=== PATIENT | male | born 1975 | race Caucasian/White ===

== ENCOUNTER → 2017-01-11 | Outpatient (CLI) | payer OTHER ==
--- NOTE | 2017-01-11 12:53 | MR ---
EXAMINATION TYPE: MR lumbar spine wo con DATE OF EXAM: 01/11/2017 COMPARISON: NONE HISTORY: Lumbago CONTRAST: 0 mL intravenous MultiHance. TECHNIQUE: Multiplanar, multisequence images of the lumbar spine were acquired. FINDINGS: L5-S1: No significant disc bulge or disc herniation. No spinal canal stenosis. No foraminal stenosi s. Mild facet hypertrophy is present.. L4-L5: No significant disc bulge or disc herniation. No spinal canal stenosis. No foraminal stenosi s. Mild disc desiccation is present. No loss of disc height is evident.. L3-L4: No significant disc bulge or disc herniation. No spinal canal stenosis. No foraminal stenosi s. . L2-L3: No significant disc bulge or disc herniation. No spinal canal stenosis. No foraminal stenosi s. . L1-L2: No significant disc bulge or disc herniation. No spinal canal stenosis. No foraminal stenosi s. . T12-L1: No significant disc bulge or disc herniation. No spinal canal stenosis. No foraminal stenos is. IMPRESSION: 1. Mild disc desiccation L4-5. 2. Mild facet degenerative change L5-S1
== END | disposition home or self-care (01) ==
LOC: RADMRIMAIN 10:04
PROVIDERS: ATTEND Nurse Practitioner Acute Care
DX: M47.817 Spondylosis without myelopathy or radiculopathy, lumbosacral region (principal)
CPT/HCPCS: 72148

== ENCOUNTER 2017-08-09 15:22 | Emergency (ER) | payer OTHER ==
[2017-08-09] MEDS ORDERED: SODIUM CHLORIDE 0.9% 1,000 ML IV STA (15:45)
[2017-08-09] MEDS ORDERED: KETOROLAC 30 MG/ML 1 ML VIAL IVP STA (15:45)
[2017-08-09] MEDS ORDERED: IPRATROPIUM-ALBUTEROL 3 ML NEB INHALATION STA (15:48)
--- NOTE | 2017-08-09 15:48 | ED ---
General Adult HPI - General Chief complaint: Chest Pain Stated complaint: Trunk pain Time Seen by Provider: 08/09/17 15:38 Source: patient, RN notes reviewed Mode of arrival: ambulatory Limitations: no limitations - History of Present Illness Initial comments: Patient is a pleasant 42-year-old male presenting to the emergency Department with complaints of trunk pain. Symptoms have been present for a couple of days. Patient has discomfort all over his trunk anterior and posterior, more in the upper trunk. As comfort does increase with position changes as well as deep breaths. Patient states he may be short of breath however states this because it hurts when he takes a deep breath. No fevers. Rare cough. No leg pain or leg swelling. No history of similar symptoms previously. - Related Data Home Medications Medication Instructions Recorded Confirmed ALPRAZolam [Xanax] 1 mg PO QID PRN 07/03/16 08/09/17 DULoxetine HCL [Cymbalta] 60 mg PO BID 07/18/17 08/09/17 Gabapentin [Neurontin] 600 mg PO TID 07/18/17 08/09/17 Acetaminophen Tab [Tylenol Tab] 325 - 650 mg PO Q6H PRN 08/09/17 08/09/17 Albuterol Inhaler [Ventolin Hfa 2 puff INHALATION Q6HR PRN 08/09/17 08/09/17 Inhaler] Methadone HCl [Methadone Intensol] 105 mg PO DAILY 08/09/17 08/09/17 Omeprazole [PriLOSEC] 20 mg PO DAILY 08/09/17 08/09/17 Allergies Allergy/AdvReac Type Severity Reaction Status Date / Time No Known Allergies Allergy Verified 08/09/17 16:51 Review of Systems ROS Statement: Those systems with pertinent positive or pertinent negative responses have been documented in the HPI. ROS Other: All systems not noted in ROS Statement are negative. 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 Past Anesthesia/Blood Transfusion Reactions: No Reported Reaction Past Psychological History: Anxiety, Depression Smoking Status: Current every day smoker Past Alcohol Use History: None Reported Past Drug Use History: None Reported - Past Family History Mother Family Medical History: Cancer Additional Family Medical History / Comment(s): Rectal ca Father Family Medical History: Cancer Additional Family Medical History / Comment(s): Lung, throat and thyroid General Exam Limitations: no limitations General appearance: alert, in no apparent distress Head exam: Present: atraumatic Eye exam: Present: normal appearance, PERRL ENT exam: Present: normal oropharynx Neck exam: Present: normal inspection Respiratory exam: Present: wheezes (Mild expiratory wheeze), chest wall tenderness Cardiovascular Exam: Present: regular rate, normal rhythm Expanded Peripheral pulses: 2+: Radial (R), Radial (L), Dorsalis Pedis (R), Dorsalis Pedis (L) GI/Abdominal exam: Present: soft. Absent: tenderness Extremities exam: Present: normal inspection. Absent: pedal edema, calf tenderness Back exam: Present: normal inspection. Absent: tenderness Neurological exam: Present: alert Psychiatric exam: Present: normal affect, normal mood Skin exam: Present: normal color Course Vital Signs 08/09/17 08/09/17 08/09/17 15:26 16:10 16:20 Temperature 97.3 F L Pulse Rate 86 70 66 Respiratory 18 Rate Blood Pressure 114/81 O2 Sat by Pulse 98 Oximetry EKG Findings - EKG Comments: EKG Findings:: Normal sinus rhythm 60. MO 132. QRS 92. QT 404. QTC 404. Normal axis. Normal QRS. No acute ST change. Medical Decision Making - Medical Decision Making Patient reevaluated and resting comfortably in bed. Patient did not feel he needed pain medication. Patient updated on results and need for follow-up, including need for repeat testing of renal function. - Lab Data Result diagrams: 08/09/17 16:00 08/09/17 16:00 Lab Results 08/09/17 08/09/17 08/09/17 Range/Units 16:00 16:00 16:00 WBC 9.4 (3.8-10.6) k/uL RBC 5.24 (4.30-5.90) m/uL Hgb 15.9 (13.0-17.5) gm/dL Hct 47.8 (39.0-53.0) % MCV 91.1 (80.0-100.0) fL MCH 30.4 (25.0-35.0) pg MCHC 33.4 (31.0-37.0) g/dL RDW 13.0 (11.5-15.5) % Plt Count 200 (150-450) k/uL Neutrophils % 53 % Lymphocytes % 36 % Monocytes % 4 % Eosinophils % 5 % Basophils % 1 % Neutrophils # 5.0 (1.3-7.7) k/uL Lymphocytes # 3.4 (1.0-4.8) k/uL Monocytes # 0.4 (0-1.0) k/uL Eosinophils # 0.4 (0-0.7) k/uL Basophils # 0.1 (0-0.2) k/uL PT (9.0-12.0) sec INR (<1.2) APTT (22.0-30.0) sec D-Dimer (<0.60) mg/L FEU Sodium 140 (137-145) mmol/L Potassium 5.2 H (3.5-5.1) mmol/L Chloride 99 (98-107) mmol/L Carbon Dioxide 31 H (22-30) mmol/L Anion Gap 10 mmol/L BUN 17 (9-20) mg/dL Creatinine 1.40 H (0.66-1.25) mg/dL Est GFR (MDRD) Af Amer >60 (>60 ml/min/1.73 sqM) Est GFR (MDRD) Non-Af 56 (>60 ml/min/1.73 sqM) Glucose 106 H (74-99) mg/dL Calcium 9.6 (8.4-10.2) mg/dL Magnesium 2.0 (1.6-2.3) mg/dL Total Bilirubin 0.7 (0.2-1.3) mg/dL AST 26 (17-59) U/L ALT 39 (21-72) U/L Alkaline Phosphatase 53 (38-126) U/L Total Creatine Kinase 198 H (55-170) U/L CK-MB (CK-2) <0.2 (0.0-2.4) ng/mL CK-MB (CK-2) Rel Index Troponin I <0.012 (0.000-0.034) ng/mL NT-Pro-B Natriuret Pep pg/mL Total Protein 7.1 (6.3-8.2) g/dL Albumin 4.2 (3.5-5.0) g/dL Amylase 43 (30-110) U/L Lipase 106 (23-300) U/L 08/09/17 08/09/17 Range/Units 16:00 16:00 WBC (3.8-10.6) k/uL RBC (4.30-5.90) m/uL Hgb (13.0-17.5) gm/dL Hct (39.0-53.0) % MCV (80.0-100.0) fL MCH (25.0-35.0) pg MCHC (31.0-37.0) g/dL RDW (11.5-15.5) % Plt Count (150-450) k/uL Neutrophils % % Lymphocytes % % Monocytes % % Eosinophils % % Basophils % % Neutrophils # (1.3-7.7) k/uL Lymphocytes # (1.0-4.8) k/uL Monocytes # (0-1.0) k/uL Eosinophils # (0-0.7) k/uL Basophils # (0-0.2) k/uL PT 10.2 (9.0-12.0) sec INR 1.0 (<1.2) APTT 26.5 (22.0-30.0) sec D-Dimer 0.19 (<0.60) mg/L FEU Sodium (137-145) mmol/L Potassium (3.5-5.1) mmol/L Chloride (98-107) mmol/L Carbon Dioxide (22-30) mmol/L Anion Gap mmol/L BUN (9-20) mg/dL Creatinine (0.66-1.25) mg/dL Est GFR (MDRD) Af Amer (>60 ml/min/1.73 sqM) Est GFR (MDRD) Non-Af (>60 ml/min/1.73 sqM) Glucose (74-99) mg/dL Calcium (8.4-10.2) mg/dL Magnesium (1.6-2.3) mg/dL Total Bilirubin (0.2-1.3) mg/dL AST (17-59) U/L ALT (21-72) U/L Alkaline Phosphatase (38-126) U/L Total Creatine Kinase (55-170) U/L CK-MB (CK-2) (0.0-2.4) ng/mL CK-MB (CK-2) Rel Index Troponin I (0.000-0.034) ng/mL NT-Pro-B Natriuret Pep 33 pg/mL Total Protein (6.3-8.2) g/dL Albumin (3.5-5.0) g/dL Amylase (30-110) U/L Lipase (23-300) U/L - Radiology Data Radiology results: image reviewed (Chest x-ray shows no acute process) Disposition Clinical Impression: Chest pain Disposition: HOME SELF-CARE Condition: Stable Instructions: Chest Pain (ED) Additional Instructions: Please follow-up with your doctor tomorrow. Return for increased pain, difficult to breathing, change or worsening symptoms or other concerns. Referrals: Gisele Garcia MD [Primary Care Provider] - 1-2 days Time of Disposition: 16:57
[2017-08-09 16:10] LABS: Basophils # (A) 0.1 k/uL (0-0.2); Basophils % (A) 1 %; Eosinophils # (A) 0.4 k/uL (0-0.7); Eosinophils % (A) 5 %; HCT 47.8 % (39.0-53.0); HGB 15.9 gm/dL (13.0-17.5); Lymphocytes # (A) 3.4 k/uL (1.0-4.8); Lymphocytes % (A) 36 %; MCH 30.4 pg (25.0-35.0); MCHC 33.4 g/dL (31.0-37.0); MCV 91.1 fL (80.0-100.0); Mean Platelet Volume 7.2; Monocytes # (A) 0.4 k/uL (0-1.0); Monocytes % (A) 4 %; Neutrophils % (A) 53 %; Platelet Count 200 k/uL (150-450); RBC 5.24 m/uL (4.30-5.90); WBC 9.4 k/uL (3.8-10.6)
[2017-08-09 16:21] LABS: ALT 39 U/L (21-72); AST 26 U/L (17-59); Albumin 4.2 g/dL (3.5-5.0); Alkaline Phosphatase 53 U/L (38-126); Amylase 43 U/L (30-110); Anion Gap 10 mmol/L; Blood Urea Nitrogen 17 mg/dL (9-20); Calcium 9.6 mg/dL (8.4-10.2); Carbon Dioxide 31 mmol/L (22-30); Chloride 99 mmol/L (98-107); Glucose 106 mg/dL (74-99); Lipase 106 U/L (23-300); Potassium 5.2 mmol/L (3.5-5.1); Sodium 140 mmol/L (137-145); Total Bilirubin 0.7 mg/dL (0.2-1.3); Total Protein 7.1 g/dL (6.3-8.2)
[2017-08-09 16:23] LABS: D-Dimer 0.19 mg/L FEU (<0.60); Partial Thromboplastin Time 26.5 sec (22.0-30.0); Prothrombin Time 10.2 sec (9.0-12.0)
[2017-08-09 16:28] LABS: Creatine Kinase 198 U/L (55-170)
[2017-08-09 16:42] LABS: Creatine Kinase MB <0.2 ng/mL (0.0-2.4); Troponin I <0.012 ng/mL (0.000-0.034)
--- NOTE | 2017-08-09 16:42 | XR ---
EXAMINATION TYPE: XR chest 2V DATE OF EXAM: 08/09/2017 COMPARISON: 1121 and 16 HISTORY: Chest pain TECHNIQUE: Frontal and lateral views of the chest are obtained. FINDINGS: There is no focal air space opacity. No evidence for pneumothorax. No pleural effusion. The cardiac silhouette size is within normal limits. The osseous structures are grossly intact. IMPRESSION: 1. No acute cardiopulmonary process.
[2017-08-09 17:22] VITALS: BP 117/67; PULSE 73; RESP 17; TEMP 98
== END 2017-08-09 17:26 | disposition home or self-care (01) ==
LOC: EC 15:22
DX: R07.9 Chest pain, unspecified (principal); F32.9 Major depressive disorder, single episode, unspecified; F41.9 Anxiety disorder, unspecified; F17.200 Nicotine dependence, unspecified, uncomplicated; Z79.899 Other long term (current) drug therapy
CPT/HCPCS: 36415; 94640; 93005; 85379; 83880; 80053; 82150; 82550; 82553; 83690; 83735; 84484; 85025; 85610; 85730; 71046; 99285; 96374; 96361; J1885

== ENCOUNTER 2017-08-17 09:45 | Emergency (ER) | payer OTHER ==
[2017-08-17] MEDS ORDERED: IPRATROPIUM-ALBUTEROL 3 ML NEB INHALATION STA (10:21)
[2017-08-17] MEDS ORDERED: methylPREDNISolone SOD SUCCI 125 MG/2 ML VIAL IV STA (10:21)
--- NOTE | 2017-08-17 10:46 | ED ---
General Adult HPI - General Chief complaint: Recheck/Abnormal Lab/Rx Stated complaint: HIGH POTASSIUM, ABNORMAL LAB RESULTS Time Seen by Provider: 08/17/17 10:10 Source: patient, RN notes reviewed, old records reviewed Mode of arrival: ambulatory Limitations: no limitations - History of Present Illness Initial comments: Patient is a 42-year-old male who presents emergency room today with an elevated potassium. He states that he was told by his doctor's office that his potassium was high from portal that he had earlier in the week. Patient states that he was seen here in emergency room for complaints of chest palpitations, right sided lower back pain over the last week. He states he was seen and diagnosed with pleurisy. Does some cough congestion. This pain at a smoker but states he has cut back. Patient states still having similar symptoms. States he had focal time his potassium was high yesterday was advised to see the family doctor unable to see him yesterday was advised coming here to the emergency room. Patient denies any other complaints or symptoms at this time. Patient states she's been having all the symptoms over the past 10 days. He denies anything that today. Patient denies any recent fever, chills, shortness of breath, vomiting, numbness or tingling, dysuria or hematuria, constipation or diarrhea, headaches or visual changes, or any other complaints. - Related Data Home Medications Medication Instructions Recorded Confirmed ALPRAZolam [Xanax] 1 mg PO QID PRN 07/03/16 08/17/17 DULoxetine HCL [Cymbalta] 60 mg PO BID 07/18/17 08/17/17 Gabapentin [Neurontin] 600 mg PO TID 07/18/17 08/17/17 Acetaminophen Tab [Tylenol Tab] 325 - 650 mg PO Q6H PRN 08/09/17 08/17/17 Albuterol Inhaler [Ventolin Hfa 2 puff INHALATION Q6HR PRN 08/09/17 08/17/17 Inhaler] Methadone HCl [Methadone Intensol] 105 mg PO DAILY 08/09/17 08/17/17 Omeprazole [PriLOSEC] 20 mg PO DAILY 08/09/17 08/17/17 Previous Rx's Medication Instructions Recorded Albuterol Nebulized [Ventolin 2.5 mg INHALATION Q4H PRN 10 Days 08/17/17 Nebulized] nebu methylPREDNISolone Dose Pack 4 mg PO DIRECTED #21 package 08/17/17 [Medrol Dose Pack] Allergies Allergy/AdvReac Type Severity Reaction Status Date / Time No Known Allergies Allergy Verified 08/17/17 10:25 Review of Systems ROS Statement: Those systems with pertinent positive or pertinent negative responses have been documented in the HPI. ROS Other: All systems not noted in ROS Statement are negative. 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 Past Anesthesia/Blood Transfusion Reactions: No Reported Reaction Past Psychological History: Anxiety, Depression Smoking Status: Current every day smoker Past Alcohol Use History: None Reported Past Drug Use History: None Reported - Past Family History Mother Family Medical History: Cancer Additional Family Medical History / Comment(s): Rectal ca Father Family Medical History: Cancer Additional Family Medical History / Comment(s): Lung, throat and thyroid General Exam - General Exam Comments Initial Comments: General: The patient is awake and alert, in no distress, and does not appear acutely ill. Eye: Pupils are equal, round and reactive to light, extra-ocular movements are intact. No nystagmus. There is normal conjunctiva bilaterally. No signs of icterus. Ears, nose, mouth and throat: There are moist mucous membranes and no oral lesions. Neck: The neck is supple, there is no tenderness or JVD. Cardiovascular: There is a regular rate and rhythm. No murmur, rub or gallop is appreciated. Tender to palpation over the anterior chest wall. Respiratory: Lungs are clear to auscultation, respirations are non-labored, breath sounds are equal. No wheezes, stridor, rales, or rhonchi. Gastrointestinal: Soft, non-distended, non-tender abdomen without masses or organomegaly noted. There is no rebound or guarding present. No CVA tenderness. Bowel sounds are unremarkable. Musculoskeletal: Normal ROM, no tenderness. Strength 5/5. Sensation intact. Pulses equal bilaterally 2+. Neurological: A&O x 3. CN II-XII intact, There are no obvious motor or sensory deficits. Coordination appears grossly intact. Speech is normal. Skin: Skin is warm and dry and no rashes or lesions are noted. Psychiatric: Cooperative, appropriate mood & affect, normal judgment. Limitations: no limitations Course Vital Signs 08/17/17 08/17/17 08/17/17 10:00 10:33 10:44 Temperature 98.5 F Pulse Rate 87 83 83 Respiratory 18 Rate Blood Pressure 142/78 O2 Sat by Pulse 97 Oximetry 08/17/17 10:45 Temperature Pulse Rate 73 Respiratory 16 Rate Blood Pressure 106/70 O2 Sat by Pulse 95 Oximetry Medical Decision Making - Medical Decision Making Patient's previous labs were also reviewed. Did have a D-dimer test that was negative on previous visit. Patient's labs today are unremarkable. Potassium is 4.9 and normal range. Results were discussed with patient. EKG shows no changes. He states he's had same symptoms that he's been expressing over the last week. Patient's pain is reproduced certain movements also when he takes deep breath. He says she was diagnosed with pleurisy. Advised continue with anti-inflammatories for pain at this time to follow-up family doctor. Return for any other concerns. - Lab Data Result diagrams: 08/17/17 10:40 08/17/17 10:40 Lab Results 08/17/17 08/17/17 08/17/17 Range/Units 10:40 10:40 10:40 WBC 7.2 (3.8-10.6) k/uL RBC 5.41 (4.30-5.90) m/uL Hgb 16.4 (13.0-17.5) gm/dL Hct 50.1 (39.0-53.0) % MCV 92.7 (80.0-100.0) fL MCH 30.4 (25.0-35.0) pg MCHC 32.7 (31.0-37.0) g/dL RDW 14.6 (11.5-15.5) % Plt Count 238 (150-450) k/uL Neutrophils % 50 % Lymphocytes % 35 % Monocytes % 6 % Eosinophils % 6 % Basophils % 1 % Neutrophils # 3.6 (1.3-7.7) k/uL Lymphocytes # 2.5 (1.0-4.8) k/uL Monocytes # 0.4 (0-1.0) k/uL Eosinophils # 0.4 (0-0.7) k/uL Basophils # 0.1 (0-0.2) k/uL PT (9.0-12.0) sec INR (<1.2) APTT (22.0-30.0) sec Sodium 139 (137-145) mmol/L Potassium 4.9 (3.5-5.1) mmol/L Chloride 101 (98-107) mmol/L Carbon Dioxide 29 (22-30) mmol/L Anion Gap 9 mmol/L BUN 15 (9-20) mg/dL Creatinine 0.99 (0.66-1.25) mg/dL Est GFR (MDRD) Af Amer >60 (>60 ml/min/1.73 sqM) Est GFR (MDRD) Non-Af >60 (>60 ml/min/1.73 sqM) Glucose 96 (74-99) mg/dL Calcium 9.9 (8.4-10.2) mg/dL Total Bilirubin 0.5 (0.2-1.3) mg/dL AST 19 (17-59) U/L ALT 28 (21-72) U/L Alkaline Phosphatase 63 (38-126) U/L Total Creatine Kinase 89 (55-170) U/L CK-MB (CK-2) 0.3 (0.0-2.4) ng/mL CK-MB (CK-2) Rel Index 0.3 Troponin I <0.012 (0.000-0.034) ng/mL Total Protein 7.1 (6.3-8.2) g/dL Albumin 4.4 (3.5-5.0) g/dL 08/17/17 Range/Units 10:40 WBC (3.8-10.6) k/uL RBC (4.30-5.90) m/uL Hgb (13.0-17.5) gm/dL Hct (39.0-53.0) % MCV (80.0-100.0) fL MCH (25.0-35.0) pg MCHC (31.0-37.0) g/dL RDW (11.5-15.5) % Plt Count (150-450) k/uL Neutrophils % % Lymphocytes % % Monocytes % % Eosinophils % % Basophils % % Neutrophils # (1.3-7.7) k/uL Lymphocytes # (1.0-4.8) k/uL Monocytes # (0-1.0) k/uL Eosinophils # (0-0.7) k/uL Basophils # (0-0.2) k/uL PT 10.1 (9.0-12.0) sec INR 1.0 (<1.2) APTT 27.1 (22.0-30.0) sec Sodium (137-145) mmol/L Potassium (3.5-5.1) mmol/L Chloride (98-107) mmol/L Carbon Dioxide (22-30) mmol/L Anion Gap mmol/L BUN (9-20) mg/dL Creatinine (0.66-1.25) mg/dL Est GFR (MDRD) Af Amer (>60 ml/min/1.73 sqM) Est GFR (MDRD) Non-Af (>60 ml/min/1.73 sqM) Glucose (74-99) mg/dL Calcium (8.4-10.2) mg/dL Total Bilirubin (0.2-1.3) mg/dL AST (17-59) U/L ALT (21-72) U/L Alkaline Phosphatase (38-126) U/L Total Creatine Kinase (55-170) U/L CK-MB (CK-2) (0.0-2.4) ng/mL CK-MB (CK-2) Rel Index Troponin I (0.000-0.034) ng/mL Total Protein (6.3-8.2) g/dL Albumin (3.5-5.0) g/dL Disposition Clinical Impression: Bronchitis Disposition: HOME SELF-CARE Condition: Good Instructions: Acute Bronchitis (ED) Additional Instructions: Please use medication as discussed. Please follow-up with family doctor in the next 2 days. Please return to emergency room if the symptoms increase or worsen or for any other concerns. Prescriptions: Albuterol Nebulized [Ventolin Nebulized] 2.5 mg INHALATION Q4H PRN 10 Days nebu PRN Reason: Cough methylPREDNISolone Dose Pack [Medrol Dose Pack] 4 mg PO DIRECTED #21 package Referrals: Gisele Garcia MD [Primary Care Provider] - 1-2 days Time of Disposition: 11:52
[2017-08-17 10:59] LABS: Basophils # (A) 0.1 k/uL (0-0.2); Basophils % (A) 1 %; Eosinophils # (A) 0.4 k/uL (0-0.7); Eosinophils % (A) 6 %; HCT 50.1 % (39.0-53.0); HGB 16.4 gm/dL (13.0-17.5); Lymphocytes # (A) 2.5 k/uL (1.0-4.8); Lymphocytes % (A) 35 %; MCH 30.4 pg (25.0-35.0); MCHC 32.7 g/dL (31.0-37.0); MCV 92.7 fL (80.0-100.0); Mean Platelet Volume 8.3; Monocytes # (A) 0.4 k/uL (0-1.0); Monocytes % (A) 6 %; Neutrophils # (A) 3.6 k/uL (1.3-7.7); Neutrophils % (A) 50 %; Platelet Count 238 k/uL (150-450); RBC 5.41 m/uL (4.30-5.90); RDW 14.6 % (11.5-15.5); WBC 7.2 k/uL (3.8-10.6)
[2017-08-17 11:08] LABS: ALT 28 U/L (21-72); AST 19 U/L (17-59); Albumin 4.4 g/dL (3.5-5.0); Alkaline Phosphatase 63 U/L (38-126); Anion Gap 9 mmol/L; Blood Urea Nitrogen 15 mg/dL (9-20); Calcium 9.9 mg/dL (8.4-10.2); Carbon Dioxide 29 mmol/L (22-30); Chloride 101 mmol/L (98-107); Glucose 96 mg/dL (74-99); Potassium 4.9 mmol/L (3.5-5.1); Sodium 139 mmol/L (137-145); Total Bilirubin 0.5 mg/dL (0.2-1.3); Total Protein 7.1 g/dL (6.3-8.2)
--- NOTE | 2017-08-17 11:11 | XR ---
EXAMINATION TYPE: XR chest 2V DATE OF EXAM: 08/17/2017 COMPARISON: Prior chest x-ray 08/09/2017 HISTORY: Cough and chest pain TECHNIQUE: Frontal and lateral views of the chest are obtained. FINDINGS: There is no focal air space opacity, pleural effusion, or pneumothorax seen. The cardiac silhouette size is within normal limits. Patient is rotated and there are overlying cardiac leads. Chely ng volumes are low. There is bronchial wall thickening. The osseous structures are intact. IMPRESSION: Correlate for bronchitis, reactive airways disease, follow-up as indicated
[2017-08-17 11:15] LABS: Partial Thromboplastin Time 27.1 sec (22.0-30.0); Prothrombin Time 10.1 sec (9.0-12.0)
[2017-08-17 11:22] LABS: Creatine Kinase 89 U/L (55-170)
[2017-08-17 11:34] LABS: Creatine Kinase MB 0.3 ng/mL (0.0-2.4); Troponin I <0.012 ng/mL (0.000-0.034)
[2017-08-17 12:33] VITALS: BP 102/53; PULSE 76; RESP 18; TEMP 97.7
== END 2017-08-17 12:32 | disposition home or self-care (01) ==
LOC: EC 09:45
DX: J40 Bronchitis, not specified as acute or chronic (principal); E87.5 Hyperkalemia; F17.200 Nicotine dependence, unspecified, uncomplicated; F41.9 Anxiety disorder, unspecified; F32.9 Major depressive disorder, single episode, unspecified; Z79.891 Long term (current) use of opiate analgesic; Z79.899 Other long term (current) drug therapy
CPT/HCPCS: 36415; 94640; 93005; 80053; 82550; 82553; 84484; 85025; 85610; 85730; 71046; 99285; 96374; J2930

== ENCOUNTER 2024-05-07 13:40 | Inpatient (IN) | payer BC, OTHER ==
--- NOTE | 2024-05-07 13:52 | P.CRDCN ---
History of Present Illness Consult date: 05/07/24 History of present illness: HISTORY OF PRESENTING ILLNESS 48-year-old male presented to [facility] with substernal chest pain. On admission to the ER his ECG showed mild ST elevations in inferolateral leads for which STEMI was activated. His blood work showed an elevated high- sensitivity troponin of 500. Because of ongoing substernal chest pain nonrevealing with nitroglycerin and subtle ST changes, STEMI was activated by the ER physician at [facility] and was transferred to [facility]. Patient was evaluated in the [facility]. Patient reported having 8/10 substernal chest pressure. He is hemodynamically stable. Patient denies any smoking, recreational drug use marijuana use or alcohol use He denies any family Struve premature coronary artery disease He denies any history of stroke [place] or any diabetes in the past. REVIEW OF SYSTEMS 14 point review of system is negative except what is mentioned above in HPI. PHYSICAL EXAMINATION Vital signs reviewed. Head: Normocephalic. Eyes: Sclerae nonicteric. Neck: Brisk carotid upstroke, no jugular venous distention. Lungs: Clear to auscultation. Heart: Regular rate and rhythm, S1-S2, no S3, no murmur or rub. Abdomen: Soft nontender, positive bowel sounds. Extremities: No edema, intact distal pulses. Neuro: Alert, oritented, no focal deficits. Detailed neuro exam was not performed. ASSESSMENT Inferior STEMI Substernal chest pressure PLAN Verbal consent was obtained from the patient to proceed with cardiac exacerbation. He understands the risk of stroke [place] vascular injury. He would like to proceed. Further recommendations to follow cardiac cath results Reevaluate social and family history once patient is more stable. Giuliano Hinojosa MD, FACC, RPVI Thank you for allowing [facility] to participate in this patient's care. Feel free to reach out in case of any followup questions. 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 Past Anesthesia/Blood Transfusion Reactions: No Reported Reaction Past Psychological History: Anxiety, Depression Past Alcohol Use History: None Reported Past Drug Use History: None Reported - Past Family History Mother Family Medical History: Cancer Additional Family Medical History / Comment(s): Rectal ca Father Family Medical History: Cancer Additional Family Medical History / Comment(s): Lung, throat and thyroid Medications and Allergies Home Medications Medication Instructions Recorded Confirmed Type ALPRAZolam [Xanax] 1 mg PO QID PRN 07/03/16 08/17/17 History DULoxetine HCL [Cymbalta] 60 mg PO BID 07/18/17 08/17/17 History Gabapentin [Neurontin] 600 mg PO TID 07/18/17 08/17/17 History Acetaminophen Tab [Tylenol Tab] 325 - 650 mg PO Q6H PRN 08/09/17 08/17/17 History Albuterol Inhaler [Ventolin Hfa 2 puff INHALATION Q6HR PRN 08/09/17 08/17/17 History Inhaler] Methadone HCl [Methadone Intensol] 105 mg PO DAILY 08/09/17 08/17/17 History Omeprazole [PriLOSEC] 20 mg PO DAILY 08/09/17 08/17/17 History Albuterol Nebulized [Ventolin 2.5 mg INHALATION Q4H PRN 10 Days 08/17/17 Rx Nebulized] nebu methylPREDNISolone Dose Pack 4 mg PO DIRECTED #21 package 08/17/17 Rx [Medrol Dose Pack] Allergies Allergy/AdvReac Type Severity Reaction Status Date / Time No Known Allergies Allergy Verified 08/17/17 10:25
[2024-05-07] MEDS: LIDOCAINE 1% INJ 10MG/ML (20 ML MDV) SQ ONE (13:58)
[2024-05-07] MEDS: IV FLUID CONTINUATION 800 ML IV ONE (13:58)
[2024-05-07] MEDS: MIDAZOLAM 2 MG/2 ML VIAL IVP ONE (13:58)
[2024-05-07] MEDS: fentaNYL (PF) 50 MCG/ML 2 ML AMP IVP ONE (13:58)
[2024-05-07] MEDS: VERAPAMIL SYRINGE (5 MG/10 ML) INTRAARTER ONE (14:00)
[2024-05-07] MEDS: HEPARIN SODIUM 1,000 UN/ML (10ML VL) IV ONE (14:03)
[2024-05-07] MEDS: IOPAMIDOL-370 200ML BTL INJ ONE (14:18)
[2024-05-07] MEDS: HEPARIN SODIUM,PORCINE (1 ML) 2,500 UNIT in SODIUM CHLORIDE 0.9% 250 ML IRRIGATION ONE (14:19)
[2024-05-07] MEDS: HEPARIN SODIUM,PORCINE 10,000 UNIT in SODIUM CHLORIDE 0.9% 1,000 ML IRRIGATION ONE (14:19)
[2024-05-07] MEDS ORDERED: RX INFO: IV CONTRAST WAS GIVEN 1 EACH MISC MISCELLANE PRN (14:33)
--- NOTE | 2024-05-07 14:33 | P.CARDCATH ---
Date of Procedure: 05/07/24 Description of Procedure: DIAGNOSTIC CORONARY ANGIOGRAPHY and LEFT HEART CATH REPORT PROCEDURES PERFORMED: Left heart catheterization Selective coronary angiography Left ventriculogram Moderate conscious sedation 28 mins Right radial access INDICATION: STEMI 48-year-old male with 3 to 4 days of substernal chest pressure presented to [facility] because of acute worsening of substernal chest heaviness sensation this morning. On admission his high-sensitivity troponin was elevated at 500. Along with this he had minor ST changes in inferolateral leads for which the ER physician at [facility] activated the STEMI. Patient was brought to [facility] on emergent basis. CONSENT: I have explained the procedural steps of above-mentioned procedures in layman's terms to the patient. I discussed the risks (including but not limited to stroke, emergent vascular or cardiac surgery or ), benefits and alternative therapies for the above-mentioned procedure. I discussed the risks of sedation/analgesia and blood product administration (if indicated). The patient has indicated understanding and acceptance of these risks. Conscious Sedation: Patient's ECG, heart rate, blood pressure, pulse oximetry were monitored throughout the duration of procedure under my direct supervision. [2] mg Versed and [50] mcg Fentanyl were used for induction of moderate conscious sedation. Total duration of moderate concious sedation 28 minutes. PROCEDURE: After explaining the risks, benefits and alternatives of the above mentioned procedures in detail to the patient, informed consent was obtained. Patient was taken to the catheterization lab, prepped and draped in usual sterile fashion using universal precuations. Ultrasound was used to identify the radial artery. 1% lidocaine was infiltrated over the right radial artery. A 6-Swazi sheath was placed and secured in the right radial artery using modified Seldinger technique. The sheath was flushed and 5 mg verapamil was administered intra-arterially. J tipped wire was advanced under fluoroscopic guidance. Once the wire tip reached aortic root [5000] units of IV heparin was given. Patient was on IV heparin drip prior to the procedure. Over the wire JR4 diagnostic catheter was advanced. The wire in place the nehemias ter was manipulated to cross the aortic valve and entered into LV under fluoroscopy guidance. The wire was removed and the catheter was flushed. LV pressures were obtained and pullback was performed under fluoroscopy. Catheter was manipulated to selectively engage the right coronary ostium. Right coronary angiography was performed in different angiographic projections. The JR4 diagnostic catheter was exchanged for a JL 3.5 diagnostic catheter over the J-wire. The wire was removed, catheter was flushed and manipulated under fluoroscopy to selectively engaged the left coronary ostium. Left coronary angioplasty was performed in different angiographic projections. Catheter was removed over the wire. Radial sheath was flushed. The right radial sheath was removed and a TR band was placed with excellent patent hemostasis was achieved. The patient tolerated the procedure well. Patient was transported back to the post catheterization holding area in stable condition. Angiographic images were reviewed in detail. HEMODYNAMICS: Aortic Pressure: 144/87 mmHg. LV pressure: 145/10 mmHg. LVEDP 24 mmHg. There was no significant gradient across the aortic valve. SELECTIVE CORONARY ARTERIOGRAPHY: LEFT MAIN: The left main is short and large caliber vessel. It bifurcates into the LAD and circumflex. Left main appears angiographically normal. LEFT ANTERIOR DESCENDING CORONARY ARTERY: LAD is a large caliber vessel which wraps around to the apex. Proximal LAD appears angiographically normal. Mid LAD appears angiographically normal. Distal LAD appears angiographically normal. LEFT CIRCUMFLEX CORONARY ARTERY: It is nondominant vessel. Left circumflex is a moderate caliber vessel. It appears angiographically normal. RIGHT CORONARY ARTERY: Dominant vessel. The right coronary artery is a large caliber vessel which gives PDA and PLV branch. It appears angiographically normal. Left ventriculogram: LVEF 50 to 55% with no major mitral regurgitation appreciated. IMPRESSION: Mild luminal irregularities otherwise patent coronary arteries Elevated LVEDP Normal LVEF at 50 to 55% PLAN: IV fluids at 125 cc/h for 4 hours Routine postop right radial approach heart cath care Further recommendations to follow Obtain echocardiogram Admit patient to cardiac tele Performing Physician Giuliano Hinojosa MD, FACC, RPVI Thank you for allowing [facility] to participate in this patient's care. Feel free to reach out in case of any followup questions.
[2024-05-07] MEDS: KETOROLAC 15 MG/ML 1 ML VIAL IVP STA (15:16)
[2024-05-07] MEDS: MAG HYDROX/AL HYDROX/SIMETH 30 ML CUP PO SCH (15:16)
[2024-05-07] MEDS: PANTOPRAZOLE 40 MG TABLET PO SCH (15:17)
[2024-05-07] MEDS: SODIUM CHLORIDE 0.9% 1,000 ML IV SCH (15:21)
[2024-05-07] MEDS: MORPHINE SULFATE 2 MG/ML SYRINGE IVP PRN (15:52)
[2024-05-07] MEDS: hydrALAZINE HCL 25 MG TAB PO SCH (15:53)
--- NOTE | 2024-05-07 16:04 | CT ---
EXAMINATION TYPE: CT chest angio for PE CT DLP: 707.3 mGycm, Automated exposure control for dose reduction was used. DATE OF EXAM: 05/07/2024 3:48 PM COMPARISON: Chest radiograph 08/17/2017 CLINICAL INDICATION:Male, 48 years old with history of r/o PE aortic dissection; R/O PE. Recent hea rt Cath. TECHNIQUE/CONTRAST: CTA scan of the thorax is performed with IV Contrast, patient injected with 100 ml mL of Isovue 370, pulmonary embolism protocol. MIP images are created and reviewed. FINDINGS: Pulmonary Artery: There is no evidence for a filling defect within the pulmonary vasculature to sugge st acute pulmonary embolism. The pulmonary artery is of normal size. Lungs/Pleura: No evidence of focal consolidation, pleural effusion or pneumothorax. Minimal centrilob ular emphysematous changes. Few scattered pulmonary nodules as examples including Right midlung perip heral 4 mm pulmonary nodule (series 406, image 61). Right lower lobe superior segment pleural based 5 .7 mm pulmonary nodule (series 406, image 63). Right middle lobe peripheral 3.5 mm pulmonary nodule ( series 406, image 90). Airway: Large airways are patent. Heart: Heart is within normal limits for size.. Vasculature: No evidence of aortic aneurysm. No gross evidence of dissection however there is subopti mal enhancement of the aorta due to pulmonary embolism protocol. Mediastinum: No evidence of adenopathy. Musculoskeletal: No acute osseous abnormalities. Heterogenous sclerotic region within the right proxi mal humeral diaphysis which may represent prior bone infarct versus other etiologies. Soft Tissues: Bilateral gynecomastia. Lower neck: No significant findings. Upper Abdomen: Contrast is demonstrated within both renal collecting systems from prior heart cathete r.. IMPRESSION: 1. No evidence of pulmonary embolism. 2. No gross evidence of aortic dissection however there is limited evaluation due to poor enhancement of the aorta secondary to pulmonary embolism protocol. 3. Few scattered pulmonary nodules measuring less than 6 mm. In a low-risk patient, no follow-up is r ecommended. In a high-risk patient consider optional CT chest in 12 months. [facility], , 05/07/2024 4:02 PM
[2024-05-07 16:37] LABS: C Reactive Protein 0.8 mg/dL (<1.0)
[2024-05-07 16:44] LABS: NT-Pro-B-Type Natriuretic Pept 147 pg/mL
--- NOTE | 2024-05-07 17:59 | P.HPIM ---
History of Present Illness H&P Date: 05/07/24 48 year old M with PMH of HLD, h/o heroin abuse now 13 years clean on Methadone presents to the ED for chest pain. Patient reports chest pain described as pressure like, mid-sternal with no radiation, alleviating or aggravating factors that has been ongoing for the the past 5-6 days. When it first started he was able to take some Rolaids which helped take the pain away. This morning the pain returned with worsening intensity. He tried to take Rolaids and Pepcid without relief which prompted him to come to the ED at [facility]. Pain is associated with diaphoresis. He denies any shortness of breath, palpitations or lightheadedness. He denies any current illicit drug use. In The ED he underwent extensive evaluation. BP 152/99, HR 56, RR 22, 99% on RA, T 97.1F. Workup significant for elevated HS Troponin I of 500, Cr 1.21, AST 39, WBC 13, Hct 50.9. Lipase, BNP, Coag panel, CXR within normal limits. ECG showed mild ST elevations in inferolateral leads for which STEMI was activated He was transferred to [facility]. He underwent cardiac cath with Dr. Hinojosa which showed mild luminal irregularities otherwise patent coronaries and EF 50-55%. He underwent CTA chest which showed no PE, no gross evidence of aortic dissection, pulmonary nodules. Patient is admitted for further workup and management. General: non toxic, moderate distress, appears at stated age Derm: warm, dry Head: atraumatic, normocephalic, symmetric Eyes: EOMI, no lid lag, anicteric sclera Mouth: no lip lesion, mucus membranes moist Cardiovascular: S1 S2 reg. No murmurs, rubs, gallops Lungs: Clear to auscultation bilaterally, no accessory muscle use Ext: no gross muscle atrophy, no edema, no contractures Neuro: no focal neuro deficits Psych: Alert, oriented, appropriate affect Based on my assessment of this patient, this patient meets a high complexity level of care. STEMI: Unclear etiology. Cardiac cath essentially negative. Possible coronary vasospasm? Other etiologies include GI causes or Pericarditis. Obtain UDS. Echo ordered. Telemetry monitoring. Will attempt GI cocktail. Protonix 40 mg PO BID. Morphine 4 mg IV Q4H PRN for severe pain. Cardiology on board. Leukocytosis: Unknown etiology. No clear signs of infection. Does not meet sepsis criteria. Monitor fever profile. Acute kidney injury: Versus CKD. Continue NS at 125 cc/hr. Repeat BMP tomorrow morning. History of heroin abuse: Methadone 125 mg PO QD. Anxiety: Xanax 1 mg PO TID. CODE STATUS: FULL CODE. DVT Prophylaxis: Lovenox SQ GI Prophylaxis: Protonix PO Designated medical POA if patient is not able to make medical decisions for themselves: I have reviewed the following splunk consultant notes: Cardiology, cath note. I have reviewed the results of the following tests: As above. I have ordered the following tests: As above. I have discussed the care of this patient with the following independent historian: Family at bedside. RN. I have independently interpreted the following test below: EKG. 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 Past Anesthesia/Blood Transfusion Reactions: No Reported Reaction Past Psychological History: Anxiety, Depression Past Alcohol Use History: None Reported Past Drug Use History: None Reported - Past Family History Mother Family Medical History: Cancer Additional Family Medical History / Comment(s): Rectal ca Father Family Medical History: Cancer Additional Family Medical History / Comment(s): Lung, throat and thyroid Medications and Allergies Home Medications Medication Instructions Recorded Confirmed Type ALPRAZolam [Xanax] 1 mg PO TID 07/03/16 05/07/24 History Methadone HCl [Methadone Intensol] 125 mg PO DIRECTED 08/09/17 05/07/24 History Pravastatin Sodium [Pravachol] 40 mg PO HS 05/07/24 05/07/24 History Rolaids(Unknown Dose) 4 tab PO DAILY PRN 05/07/24 05/07/24 History Testosterone Cypionate 200 mg IM Q14D 05/07/24 05/07/24 History [Depo-Testosterone] tiZANidine [Zanaflex] 4 mg PO BID PRN 05/07/24 05/07/24 History Allergies Allergy/AdvReac Type Severity Reaction Status Date / Time No Known Allergies Allergy Verified 05/07/24 17:32 Physical Exam Vitals: Vital Signs Temp Pulse Resp BP Pulse Ox 05/07/24 17:19 56 L 18 132/64 97 05/07/24 16:19 62 18 164/76 98 05/07/24 16:00 60 18 173/116 97 05/07/24 15:49 58 L 18 175/111 97 05/07/24 15:19 97.8 F 52 L 18 131/87 97 05/07/24 15:04 56 L 18 153/97 98 Intake and Output 05/07/24 05/07/24 05/07/24 06:59 14:59 22:59 Intake Total 100 Balance 100 Intake: IV 100 Other: Weight 100 kg Thrombosis Risk Factor Assmnt - Choose All That Apply Any of the Below Risk Factors Present?: Yes Each Factor Represents 1 point: Age 41-60 years, Obesity (BMI >25) Other Risk Factors: No Other congenital or acquired thrombophilia - If yes, enter type in comment: No Thrombosis Risk Factor Assessment Total Risk Factor Score: 2 Thrombosis Risk Factor Assessment Level: Low Risk
[2024-05-07] MEDS: MORPHINE SULFATE 2 MG/ML SYRINGE IVP STA (18:33)
[2024-05-07] MEDS ORDERED: PRAVASTATIN SODIUM 40 MG TAB PO SCH (21:00)
[2024-05-07] MEDS: MAG HYDROX/AL HYDROX/SIMETH 30 ML, HYOSCYAMINE ELIXIR 10 ML, LIDOCAINE VISCOUS 2% 10 ML PO ONE (21:20)
[2024-05-07] MEDS: ALPRAZolam 1 MG TAB PO SCH (21:20)
[2024-05-07] MEDS: ATORVASTATIN 40 MG TAB PO SCH (21:20)
[2024-05-07 22:20] LABS: Amphetamine Screen,Urine Not Detected (NotDetected); Barbiturate Screen,Urine Not Detected (NotDetected); Benzodiazepines Screen,Urine Detected (NotDetected); Cocaine Screen,Urine Not Detected (NotDetected); Methadone Screen, Urine Detected (NotDetected); Opiate Screen,Urine Detected (NotDetected); Oxycodone Screen, Urine Not Detected (NotDetected); Phencyclidine Screen,Urine Not Detected (NotDetected); Tricyclic Antidepressant,Urine Not Detected (NotDetected); Urn Cannabinoid Scrn Not Detected (NotDetected)
[2024-05-07] MEDS: MORPHINE SULFATE 4 MG/ML SYRINGE IVP PRN (22:34)
[2024-05-08 02:41] LABS: Chol/HDL Ratio 5.68 Ratio; LDL Cholesterol,Calculated 161.7 mg/dL (0.0-131.0); VLDL Calculation 16.32 mg/dL (5.00-40.00)
[2024-05-08 06:48] LABS: HGB 17.8 gm/dL (13.0-17.5); MCH 30.6 pg (25.0-35.0); MCHC 31.7 g/dL (31.0-37.0); MCV 96.6 fL (80.0-100.0); Mean Platelet Volume 8.5; Platelet Count 240 k/uL (150-450); RBC 5.79 m/uL (4.30-5.90); RDW 13.9 % (11.5-15.5); WBC 16.9 k/uL (3.8-10.6)
--- NOTE | 2024-05-08 07:32 | CA ---
Transthoracic Echo Report Name: Rico Betancourt Age: 48 Gender: M : 1975 Exam Date: 05/07/2024 18:06 Exam Location: [facility] Ht (in): 72 Wt (lb): 220 Ordering Physician: Giuliano Hinojosa MD ([id number]) Attending/Referring Phys: [facility] Carol Werner RDCS Procedure CPT: Indications: stemi Cardiac Hx: Technical Quality: Technically difficult study Contrast 1: Total Dose (mL): Contrast 2: Total Dose (mL): MEASUREMENTS (Male / Female) Normal Values 2D ECHO LV Diastolic Diameter PLAX 5.6 cm 4.2 - 5.9 / 3.9 - 5.3 cm LV Systolic Diameter PLAX 3.5 cm IVS Diastolic Thickness 1.2 cm 0.6 - 1.0 / 0.6 - 0.9 cm LVPW Diastolic Thickness 1.1 cm 0.6 - 1.0 / 0.6 - 0.9 cm LV Relative Wall Thickness 0.4 RV Internal Dim ED PLAX 2.8 cm LA Systolic Diameter LX 3.7 cm 3.0 - 4.0 / 2.7 - 3.8 cm LV Diastolic Volume MOD BP 121.3 cm??? 67 - 155 / 56 - 104 cm??? LV Systolic Volume MOD BP 44.5 cm??? - 58 / 19 - 49 cm??? LV Ejection Fraction MOD BP 63.3 % >= 55 % LV Cardiac Index MOD BP 2092.9 cm???/min???m??? LV Diastolic Volume MOD 4C 128.9 cm??? LV Systolic Volume MOD 4C 51.6 cm??? LV Ejection Fraction MOD 4C 59.9 % LV Cardiac Index MOD 4C 2105.9 cm???/min???m??? LV Diastolic Length 4C 8.3 cm LV Systolic Length 4C 6.3 cm LV Diastolic Volume MOD 2C 106.0 cm??? LV Systolic Volume MOD 2C 36.5 cm??? LV Ejection Fraction MOD 2C 65.5 % LV Cardiac Index MOD 2C 1893.4 cm???/min???m??? LV Diastolic Length 2C 7.7 cm LV Systolic Length 2C 6.7 cm LA Volume 59.7 cm??? 18 - 58 / 22 - 52 cm??? LA Volume Index 26.3 cm???/m??? 16 - 28 cm???/m??? M-MODE Aortic Root Diameter MM 4.0 cm AV Cusp Separation MM 2.8 cm DOPPLER AV Peak Velocity 106.8 cm/s AV Peak Gradient 4.6 mmHg MV Area PHT 5.9 cm??? Mitral E Point Velocity 98.7 cm/s Mitral A Point Velocity 42.7 cm/s Mitral E to A Ratio 2.3 MV Deceleration Time 129.3 ms TR Peak Velocity 293.2 cm/s TR Peak Gradient 34.4 mmHg Right Ventricular Systolic Press 39.4 mmHg FINDINGS Left Ventricle Left ventricular ejection fraction is estimated at 45-50 %. Mildly increased septal wall thickness. Left ventricular cavity size normal. Inferoapical and lateral wall hypokinesis Right Ventricle Normal right ventricular size and function. Mild pulmonary hypertension. Right Atrium Normal right atrial size. No right atrial thrombus or mass seen. Left Atrium Mildly increased left atrial volume. No left atrial thrombus or mass present. Mitral Valve Structurally normal mitral valve. No mitral stenosis, regurgitation or prolapse. Aortic Valve Trileaflet aortic valve. No aortic valve stenosis or regurgitation. Tricuspid Valve Structurally normal tricuspid valve. Mild tricuspid regurgitation. Pulmonic Valve Pulmonic valve not well visualized. No pulmonic regurgitation. Pericardium No pericardial effusion. Aorta Mild aortic dilatation at the level of the sinuses of valsalva 40 mm CONCLUSIONS 1. Mildly impaired left ventricular systolic function with segmental wall motion abnormality 2. Mild tricuspid regurgitation with moderate pulmonary hypertension Definity ECHO contrast used for improved visualization of the endocardial borders (inadequate visualization of two or more contiguous segments). Previewed by: Dr. Dequan Mcdonnell MD (Electronically Signed) Final Date: 08 May 2024 07:31
[2024-05-08 07:44] LABS: African American GFR (CKD) >90 (>60 ml/min/1.73 sqM); Anion Gap 5 mmol/L; Blood Urea Nitrogen 8 mg/dL (9-20); Calcium 9.6 mg/dL (8.4-10.2); Carbon Dioxide 30 mmol/L (22-30); Chloride 100 mmol/L (98-107); Glucose 108 mg/dL (74-99); Non-African American GFR(CKD) 88 (>60 ml/min/1.73 sqM); Potassium 4.9 mmol/L (3.5-5.1); Sodium 135 mmol/L (137-145)
[2024-05-08] MEDS: ENOXAPARIN 40 MG/0.4 ML SYRINGE SQ SCH (09:20)
[2024-05-08] MEDS: METOPROLOL TARTRATE 12.5 MG TAB PO SCH (10:07)
[2024-05-08] MEDS: SODIUM CHLORIDE 0.9% 1,000 ML IV SCH (10:07)
[2024-05-08] MEDS: METHADONE 10 MG TAB PO SCH (10:08)
[2024-05-08] MEDS: METHADONE 5 MG TAB PO SCH (10:09)
[2024-05-08] MEDS: METOPROLOL TARTRATE 12.5 MG TAB PO STA (11:22)
--- NOTE | 2024-05-08 13:31 | P.PN ---
Subjective Progress Note Date: 05/08/24 Principal diagnosis: HPI: [This patient presented to [facility] with chest pain there was a question of ST elevation in the inferior lateral leads. Cardiac cath reve aled noncritical mild CAD. He continues to have chest pain atypical in nature he is currently on a methadone program. Echo revealed some inferior wall motion abnormalities. Repeat EKG today does not reveal any acute changes. Possible myopericarditis. Troponin was minimally elevated I am requesting an additional troponin and EKG and will give him some Dilaudid for pain if necessary but he is already on methadone. He may have some myopericarditis type picture because pain is precordial pleuritic in nature no rub is audible]. PHYSICIAL EXAM: [Vitals are stable no JVD S1-S2 heard normally no rub lungs are clear abdomen is soft lower EXTR is reveal diminished pulses no edema, central nervous system is normal IMPRESSION: 1. [Borderline troponin elevation no obstructive CAD]. 2. [Possible myopericarditis]. 3. []. 4. []. 5. []. RECOMMENDATIONS: [Repeat EKG revealed no acute changes troponin pending continue current therapy possible discharge in a.m.]. Objective - Vital Signs Vital signs: Vital Signs Temp 98.3 F 05/08/24 11:23 Pulse 64 05/08/24 11:23 Resp 18 05/08/24 11:23 BP 156/96 05/08/24 11:23 Pulse Ox 96 05/08/24 11:23 FiO2 Intake & Output 05/07/24 05/08/24 05/08/24 18:59 06:59 18:59 Intake Total 640 480 130 Balance 640 480 130 Weight 100 kg 101.2 kg Intake: IV 100 10 Invasive Line 1 10 Oral 540 480 120 Other: Voiding Method Toilet # Voids 2 - Labs CBC & Chem 7: 05/08/24 06:10 05/08/24 06:10 Labs: Abnormal Lab Results - Last 24 Hours (Table) 05/07/24 05/07/24 05/07/24 Range/Units 14:54 14:54 21:00 WBC (3.8-10.6) k/uL Hgb (13.0-17.5) gm/dL Hct (39.0-53.0) % ESR 17 H (0-15) mm/Hr Sodium (137-145) mmol/L BUN (9-20) mg/dL Glucose (74-99) mg/dL Troponin I (0.000-0.034) ng/mL Cholesterol 216.00 H (0.00-200.00) mg/dL LDL Cholesterol, Calc 161.7 H (0.0-131.0) mg/dL HDL Cholesterol 38.00 L (40.00-60.00) mg/dL Urine Opiates Screen Detected H (NotDetected) Urine Methadone Screen Detected H (NotDetected) U Benzodiazepines Scrn Detected H (NotDetected) 05/08/24 05/08/24 05/08/24 Range/Units 06:10 06:10 11:41 WBC 16.9 H (3.8-10.6) k/uL Hgb 17.8 H (13.0-17.5) gm/dL Hct 56.0 H (39.0-53.0) % ESR (0-15) mm/Hr Sodium 135 L (137-145) mmol/L BUN 8 L (9-20) mg/dL Glucose 108 H (74-99) mg/dL Troponin I 24.000 H* (0.000-0.034) ng/mL Cholesterol (0.00-200.00) mg/dL LDL Cholesterol, Calc (0.0-131.0) mg/dL HDL Cholesterol (40.00-60.00) mg/dL Urine Opiates Screen (NotDetected) Urine Methadone Screen (NotDetected) U Benzodiazepines Scrn (NotDetected)
--- NOTE | 2024-05-08 13:37 | P.PN ---
Subjective Progress Note Date: 05/08/24 48 year old M with PMH of HLD, h/o heroin abuse now 13 years clean on Methadone presents to the ED for chest pain. Patient reports chest pain described as pressure like, mid-sternal with no radiation, alleviating or aggravating factors that has been ongoing for the the past 5-6 days. When it first started he was able to take some Rolaids which helped take the pain away. This morning the pain returned with worsening intensity. He tried to take Rolaids and Pepcid without relief which prompted him to come to the ED at [facility]. Pain is associated with diaphoresis. He denies any shortness of breath, palpitations or lightheadedness. He denies any current illicit drug use. In The ED he underwent extensive evaluation. BP 152/99, HR 56, RR 22, 99% on RA, T 97.1F. Workup significant for elevated HS Troponin I of 500, Cr 1.21, AST 39, WBC 13, Hct 50.9. Lipase, BNP, Coag panel, CXR within normal limits. ECG showed mild ST elevations in inferolateral leads for which STEMI was activated He was transfer red to [facility]. He underwent cardiac cath with Dr. Hinojosa which showed mild luminal irregularities otherwise patent coronaries and EF 50-55%. He underwent CTA chest which showed no PE, no gross evidence of aortic dissection, pulmonary nodules. Patient is admitted for further workup and management. 05/08 Patient was seen and examined. Appears less distressed but still with chest pain. Runs of VTach seen on telemetry overnight. Discussed with Dr. Shen, increase Toprolol to 25 mg PO TID, repeat EKG and Trop. CBC and BMP significant for WBC 16.9, Hg 17.8, Hct 56, Na 135, BUN 8, glu 108. Mag 2.2. Trop 24. CRP 0.8, ESR 17. A1c 5.8. Lipid panel T. Chol 216, LDL 161.7, HDL 38. TSH 1.33. BNP 147. COVID/RSV/Flu negative. UDS + opiate, methadone, benzodiazepine. Echo EF 45-50% inferoapical + lateral wall hypokinesis. General: non toxic, mild distress, appears at stated age Derm: warm, dry Head: atraumatic, normocephalic, symmetric Eyes: EOMI, no lid lag, anicteric sclera Mouth: no lip lesion, mucus membranes moist Cardiovascular: S1 S2 reg. No murmurs, rubs, gallops Lungs: Clear to auscultation bilaterally, no accessory muscle use Ext: no gross muscle atrophy, no edema, no contractures Neuro: no focal neuro deficits Psych: Alert, oriented, appropriate affect Based on my assessment of this patient, this patient meets a high complexity level of care. STEMI: Unclear etiology. Cardiac cath essentially negative. Possible coronary vasospasm? Other etiologies include GI causes, Takotsubo or m yocarditis/pericarditis. UDS as above. Echo with EF 45-50% inferoapical + lateral wall hypokinesis. Telemetry monitoring. Dilaudid 1 mg IV Q4H PRN for severe pain. Cardiology on board. NSVT: Maintain K > 4 and Mg > 2. Telemetry monitoring. Metoprolol 25 mg PO TID. Systolic CHF EF 45-50%: Euvolemic. BNP 147. Dyslipidemia: Lipitor 40 mg PO QHS. Leukocytosis: Unknown etiology. No clear signs of infection. Does not meet sepsis criteria. Monitor fever profile. History of heroin abuse: Methadone 125 mg PO QD. Anxiety: Xanax 1 mg PO TID. Resolved: BINU CODE STATUS: FULL CODE. DVT Prophylaxis: Lovenox SQ GI Prophylaxis: Designated medical POA if patient is not able to make medical decisions for the mselves: I have reviewed the following clinical program consultant notes: I have reviewed the results of the following tests: As above. I have ordered the following tests: As above. I have discussed the care of this patient with the following independent historian: Family at bedside. RN. I have independently interpreted the following test below: I have discussed the management of this patient with the following physician: Dr. Shen. Objective - Vital Signs Vital signs: Vital Signs Temp 98.3 F 05/08/24 11:23 Pulse 64 05/08/24 11:23 Resp 18 05/08/24 11:23 BP 156/96 05/08/24 11:23 Pulse Ox 96 05/08/24 11:23 FiO2 Intake & Output 05/07/24 05/08/24 05/08/24 18:59 06:59 18:59 Intake Total 640 480 130 Balance 640 480 130 Weight 100 kg 101.2 kg Intake: IV 100 10 Invasive Line 1 10 Oral 540 480 120 Other: Voiding Method Toilet # Voids 2 - Labs CBC & Chem 7: 05/08/24 06:10 05/08/24 06:10 Labs: Abnormal Lab Results - Last 24 Hours (Table) 05/07/24 05/07/24 05/07/24 Range/Units 14:54 14:54 21:00 WBC (3.8-10.6) k/uL Hgb (13.0-17.5) gm/dL Hct (39.0-53.0) % ESR 17 H (0-15) mm/Hr Sodium (137-145) mmol/L BUN (9-20) mg/dL Glucose (74-99) mg/dL Troponin I (0.000-0.034) ng/mL Cholesterol 216.00 H (0.00-200.00) mg/dL LDL Cholesterol, Calc 161.7 H (0.0-131.0) mg/dL HDL Cholesterol 38.00 L (40.00-60.00) mg/dL Urine Opiates Screen Detected H (NotDetected) Urine Methadone Screen Detected H (NotDetected) U Benzodiazepines Scrn Detected H (NotDetected) 05/08/24 05/08/24 05/08/24 Range/Units 06:10 06:10 11:41 WBC 16.9 H (3.8-10.6) k/uL Hgb 17.8 H (13.0-17.5) gm/dL Hct 56.0 H (39.0-53.0) % ESR (0-15) mm/Hr Sodium 135 L (137-145) mmol/L BUN 8 L (9-20) mg/dL Glucose 108 H (74-99) mg/dL Troponin I 24.000 H* (0.000-0.034) ng/mL Cholesterol (0.00-200.00) mg/dL LDL Cholesterol, Calc (0.0-131.0) mg/dL HDL Cholesterol (40.00-60.00) mg/dL Urine Opiates Screen (NotDetected) Urine Methadone Screen (NotDetected) U Benzodiazepines Scrn (NotDetected)
[2024-05-08] MEDS: HEPARIN SODIUM 1,000 UN/ML (10ML VL) IV ONE (14:20)
[2024-05-08] MEDS: HEPARIN SOD,PORK IN 0.45% NACL 25,000 UNIT in 0.45% NACL 1 250ML.BAG IV SCH (14:21)
[2024-05-08] MEDS: HYDROmorphone 1 MG/ML 1 ML SYRINGE IVP PRN (14:22)
[2024-05-08 15:17] LABS: Basophils # (A) 0.1 k/uL (0-0.2); Basophils % (A) 0 %; Eosinophils # (A) 0.1 k/uL (0-0.7); Eosinophils % (A) 1 %; HCT 53.7 % (39.0-53.0); HGB 18.2 gm/dL (13.0-17.5); INR 1.1 (<1.2); Lymphocytes # (A) 2.6 k/uL (1.0-4.8); Lymphocytes % (A) 16 %; MCH 31.9 pg (25.0-35.0); MCHC 33.8 g/dL (31.0-37.0); MCV 94.3 fL (80.0-100.0); Mean Platelet Volume 9.2; Monocytes # (A) 1.3 k/uL (0-1.0); Monocytes % (A) 8 %; Neutrophils # (A) 12.2 k/uL (1.3-7.7); Neutrophils % (A) 75 %; Partial Thromboplastin Time 35.4 sec (22.0-30.0); Platelet Count 218 k/uL (150-450); Prothrombin Time 12.1 sec (10.0-12.5); RBC 5.69 m/uL (4.30-5.90); RDW 14.2 % (11.5-15.5); WBC 16.3 k/uL (3.8-10.6)
[2024-05-08] MEDS: METOPROLOL TARTRATE 25 MG TAB PO SCH (17:35)
[2024-05-08] MEDS: ACETAMINOPHEN TAB 325 MG TAB PO PRN (20:12)
[2024-05-08] MEDS: HEPARIN SODIUM 1,000 UN/ML (10ML VL) IV PRN (21:26)
[2024-05-09 07:09] LABS: INR 1.1 (<1.2); Prothrombin Time 12.1 sec (10.0-12.5)
[2024-05-09 07:11] LABS: Basophils # (A) 0.1 k/uL (0-0.2); Basophils % (A) 1 %; Eosinophils # (A) 0.1 k/uL (0-0.7); Eosinophils % (A) 1 %; HCT 55.1 % (39.0-53.0); HGB 18.5 gm/dL (13.0-17.5); Lymphocytes # (A) 2.1 k/uL (1.0-4.8); Lymphocytes % (A) 14 %; MCH 31.5 pg (25.0-35.0); MCHC 33.6 g/dL (31.0-37.0); MCV 93.8 fL (80.0-100.0); Mean Platelet Volume 9.6; Monocytes # (A) 1.6 k/uL (0-1.0); Monocytes % (A) 10 %; Neutrophils # (A) 11.4 k/uL (1.3-7.7); Neutrophils % (A) 73 %; Platelet Count 201 k/uL (150-450); RBC 5.88 m/uL (4.30-5.90); RDW 14.3 % (11.5-15.5); WBC 15.6 k/uL (3.8-10.6)
--- NOTE | 2024-05-09 11:04 | P.PN ---
Subjective Progress Note Date: 05/09/24 HPI: [This young man had chest pain that persisted yesterday I performed troponins which revealed a rise and fall suggestive of myocardial infarction. I went back and reviewed the angiograms. There is no significant occlusion of any major vessel but there is a groove branch of circumflex best seen in the DONA view where the branch is diffusely diseased and probably has some subtotal occlusion and late filling this could clearly explain the troponin rise. He does not have a pericardial rub vitals are stable his pain is less. I will repeat an echo and continue heparin till tomorrow and add losartan 25 mg daily]. PHYSICIAL EXAM: [Vitals are stable no JVD S1-S2 heard normally lungs are clear there is no pericardial rub abdomen is soft lower extremities reveal diminished pulses Central nervous system is normal]. IMPRESSION: 1. [Acute non-ST elevation CT]. 2. [Chronic pain on methadone]. 3. []. 4. []. 5. []. RECOMMENDATIONS: [Continue IV heparin repeat echocardiogram add losartan increase activity possible discharge in the next 24 to 48 hours. Discussed my thoughts in detail with the patient and and family advise risk factor modification]. Objective - Vital Signs Vital signs: Vital Signs Temp 98.4 F 05/09/24 08:10 Pulse 76 05/09/24 09:31 Resp 18 05/09/24 09:31 BP 134/88 05/09/24 08:10 Pulse Ox 96 05/09/24 08:10 FiO2 Intake & Output 05/08/24 05/09/24 05/09/24 18:59 06:59 18:59 Intake Total 860 174.587 10 Balance 860 174.587 10 Weight 99.5 kg Intake: IV 20 10 10 Invasive Line 1 20 10 10 Intake, IV Titration 164.587 Amount Heparin Sod,Pork in 0.45% 164.587 NaCl 25,000 unit In 0.45 % NaCl 1 250ml.bag @ 9. 881 UNITS/KG/HR 10 mls/hr IV .Q24H [facility] Rx#: [id number] Oral 840 Other: Voiding Method Toilet Toilet # Voids 3 - Labs CBC & Chem 7: 05/09/24 05:55 05/08/24 06:10 Labs: Abnormal Lab Results - Last 24 Hours (Table) 1005/08/24 05/08/24 Range/Units 11:41 14:33 14:33 WBC 16.3 H (3.8-10.6) k/uL Hgb 18.2 H (13.0-17.5) gm/dL Hct 53.7 H (39.0-53.0) % Neutrophils # 12.2 H (1.3-7.7) k/uL Monocytes # 1.3 H (0-1.0) k/uL APTT 35.4 H (22.0-30.0) sec Troponin I 24.000 H* (0.000-0.034) ng/mL 05/08/24 05/08/24 05/09/24 Range/Units 18:10 20:03 03:57 WBC (3.8-10.6) k/uL Hgb (13.0-17.5) gm/dL Hct (39.0-53.0) % Neutrophils # (1.3-7.7) k/uL Monocytes # (0-1.0) k/uL APTT 37.3 H 32.9 H (22.0-30.0) sec Troponin I 33.900 H* (0.000-0.034) ng/mL 05/09/24 05/09/24 Range/Units 05:55 05:55 WBC 15.6 H (3.8-10.6) k/uL Hgb 18.5 H (13.0-17.5) gm/dL Hct 55.1 H (39.0-53.0) % Neutrophils # 11.4 H (1.3-7.7) k/uL Monocytes # 1.6 H (0-1.0) k/uL APTT (22.0-30.0) sec Troponin I 29.900 H* (0.000-0.034) ng/mL
[2024-05-09] MEDS: LOSARTAN 25 MG TAB PO SCH ×2 (11:53→11:54)
--- NOTE | 2024-05-09 15:30 | P.PN ---
Subjective Progress Note Date: 05/09/24 48 year old M with PMH of HLD, h/o heroin abuse now 13 years clean on Methadone presents to the ED for chest pain. Patient reports chest pain described as pressure like, mid-sternal with no radiation, alleviating or aggravating factors that has been ongoing for the the past 5-6 days. When it first started he was able to take some Rolaids which helped take the pain away. This morning the pain returned with worsening intensity. He tried to take Rolaids and Pepcid without relief which prompted him to come to the ED at [facility]. Pain is associated with diaphoresis. He denies any shortness of breath, palpitations or lightheadedness. He denies any current illicit drug use. In The ED he underwent extensive evaluation. BP 152/99, HR 56, RR 22, 99% on RA, T 97.1F. Workup significant for elevated HS Troponin I of 500, Cr 1.21, AST 39, WBC 13, Hct 50.9. Lipase, BNP, Coag panel, CXR within normal limits. ECG showed mild ST elevations in inferolateral leads for which STEMI was activated He was transfer red to [facility]. He underwent cardiac cath with Dr. Hinojosa which showed mild luminal irregularities otherwise patent coronaries and EF 50-55%. He underwent CTA chest which showed no PE, no gross evidence of aortic dissection, pulmonary nodules. Patient is admitted for further workup and management. Echo EF 45-50% inferoapical + lateral wall hypokinesis. Repeat Troponin 24, 33.9, 29.9. 05/09 Patient was seen and examined. Appears less distressed but still with chest pain. No more runs of VTach. Troponin 24, 33.9, 29.9. Per Dr. Shen, groove branch of circumflex is diffusely diseased and probably has some subtotal occlusion and late filling. Cardiology plans of 48 hour heparin infusion. CBC significant for WBC 15.6, Hg 18.5, Hct 55.1. APTT 41.1. General: non toxic, mild distress, appears at stated age Derm: warm, dry Head: atraumatic, normocephalic, symmetric Eyes: EOMI, no lid lag, anicteric sclera Mouth: no lip lesion, mucus membranes moist Cardiovascular: S1 S2 reg. No murmurs, rubs, gallops Lungs: Clear to auscultation bilaterally, no accessory muscle use Ext: no gross muscle atrophy, no edema, no contractures Neuro: no focal neuro deficits Psych: Alert, oriented, appropriate affect Based on my assessment of this patient, this patient meets a high complexity level of care. STEMI: Per Dr. Shen, groove branch of circumflex is diffusely diseased and probably has some subtotal occlusion and late filling seen on cardiac cath. Continue Heparin drip for 24 more hours. Echo with EF 45-50% inferoapical + lateral wall hypokinesis. Telemetry monitoring. Dilaudid 1 mg IV Q2H PRN for severe pain. Add Toradol 15 mg IV Q6H PRN. Cardiology on board. NSVT: Maintain K > 4 and Mg > 2. Telemetry monitoring. Metoprolol 25 mg PO TID. Systolic CHF EF 45-50%: Euvolemic. BNP 147. Dyslipidemia: Lipitor 40 mg PO QHS. Leukocytosis: Unknown etiology. No clear signs of infection. Does not meet s epsis criteria. Monitor fever profile. History of heroin abuse: Methadone 125 mg PO QD. Anxiety: Xanax 1 mg PO TID. Resolved: BINU CODE STATUS: FULL CODE. DVT Prophylaxis: Heparin drip GI Prophylaxis: Designated medical POA if patient is not able to make medical decisions for themselves: I have reviewed the following outbound sales consultant notes: Cardiology. I have reviewed the results of the following tests: Troponin x 3, CBC, Coag panel. I have ordered the following tests: Daily Coag panel. I have discussed the care of this patient with the following independent historian: Family at bedside. RN. I have independently interpreted the following test below: I have discussed the management of this patient with the following physician: Objective - Vital Signs Vital signs: Vital Signs Temp 98.4 F 05/09/24 08:10 Pulse 65 05/09/24 14:51 Resp 18 05/09/24 14:51 BP 91/55 05/09/24 14:50 Pulse Ox 97 05/09/24 11:47 FiO2 Intake & Output 05/08/24 05/09/24 05/09/24 18:59 06:59 18:59 Intake Total 860 174.587 105.413 Balance 860 174.587 105.413 Weight 99.5 kg Intake: IV 20 10 20 Invasive Line 1 20 10 20 Intake, IV Titration 164.587 85.413 Amount Heparin Sod,Pork in 0.45% 164.587 85.413 NaCl 25,000 unit In 0.45 % NaCl 1 250ml.bag @ 9. 881 UNITS/KG/HR 10 mls/hr IV .Q24H [facility] Rx#: [id number] Oral 840 Other: Voiding Method Toilet Toilet # Voids 3 - Labs CBC & Chem 7: 05/09/24 05:55 05/08/24 06:10 Labs: Abnormal Lab Results - Last 24 Hours (Table) 05/08/24 05/08/24 05/09/24 Range/Units 18:10 20:03 03:57 WBC (3.8-10.6) k/uL Hgb (13.0-17.5) gm/dL Hct (39.0-53.0) % Neutrophils # (1.3-7.7) k/uL Monocytes # (0-1.0) k/uL APTT 37.3 H 32.9 H (22.0-30.0) sec Troponin I 33.900 H* (0.000-0.034) ng/mL 05/09/24 05/09/24 05/09/24 Range/Units 05:55 05:55 10:59 WBC 15.6 H (3.8-10.6) k/uL Hgb 18.5 H (13.0-17.5) gm/dL Hct 55.1 H (39.0-53.0) % Neutrophils # 11.4 H (1.3-7.7) k/uL Monocytes # 1.6 H (0-1.0) k/uL APTT 41.1 H (22.0-30.0) sec Troponin I 29.900 H* (0.000-0.034) ng/mL
[2024-05-09] MEDS: KETOROLAC 15 MG/ML 1 ML VIAL IVP PRN (17:16)
--- NOTE | 2024-05-09 18:05 | CA ---
Transthoracic Echo Report Name: Rico Betancourt Age: 48 Gender: M : 1975 Exam Date: 05/09/2024 15:23 Exam Location: [facility] Ht (in): 72 Wt (lb): 219 Ordering Physician: Debra Feldman Attending/Referring Phys: [id number], Francia Fitter Placer Kanwal Lisa, KUNAL Procedure CPT: Indications: wall motion, LV function Cardiac Hx: Technical Quality: Fair Contrast 1: Definity Total Dose (mL): 2 Contrast 2: Total Dose (mL): MEASUREMENTS (Male / Female) Normal Values 2D ECHO LV Diastolic Diameter PLAX 5.4 cm 4.2 - 5.9 / 3.9 - 5.3 cm LV Systolic Diameter PLAX 4.2 cm IVS Diastolic Thickness 1.3 cm 0.6 - 1.0 / 0.6 - 0.9 cm LVPW Diastolic Thickness 1.2 cm 0.6 - 1.0 / 0.6 - 0.9 cm LV Relative Wall Thickness 0.5 RV Internal Dim ED PLAX 2.4 cm LA Systolic Diameter LX 3.5 cm 3.0 - 4.0 / 2.7 - 3.8 cm LV Diastolic Volume MOD BP 137.7 cm??? 67 - 155 / 56 - 104 cm??? LV Systolic Volume MOD BP 86.0 cm??? 22 - 58 / 19 - 49 cm??? LV Ejection Fraction MOD BP 37.6 % >= 55 % LV Cardiac Index MOD BP 1573.7 cm???/min???m??? LV Diastolic Volume MOD 4C 143.6 cm??? LV Systolic Volume MOD 4C 86.8 cm??? LV Ejection Fraction MOD 4C 39.5 % LV Cardiac Index MOD 4C 1726.3 cm???/min???m??? LV Diastolic Length 4C 9.3 cm LV Systolic Length 4C 7.9 cm LV Diastolic Volume MOD 2C 124.6 cm??? LV Systolic Volume MOD 2C 80.3 cm??? LV Ejection Fraction MOD 2C 35.5 % LV Cardiac Index MOD 2C 1346.9 cm???/min???m??? LV Diastolic Length 2C 8.8 cm LV Systolic Length 2C 8.5 cm M-MODE Aortic Root Diameter MM 3.9 cm LA Systolic Diameter MM 3.2 cm LA Ao Ratio MM 0.8 AV Cusp Separation MM 2.6 cm FINDINGS Left Ventricle Left ventricular ejection fraction is estimated at 35-40 %. Severely increased left ventricular systolic volume. Moderately decreased left ventricular ejection fraction. Hypokinesis of the lateral and inferior wall. Mildly increased left ventricular wall thickness. Right Ventricle Right Atrium Left Atrium Mitral Valve Aortic Valve Tricuspid Valve Pulmonic Valve Pericardium Aorta Mild aortic dilatation at the level of the sinuses of valsalva (root). CONCLUSIONS Limited echo. Technically difficult study. Definity ECHO contrast used for improved visualization of the endocardial borders (inadequate visualization of two or more contiguous segments). Moderately to severely impaired left ventricular systolic function with segmental wall motion abnormality Previewed by: Dr. Dequan Mcdonnell MD (Electronically Signed) Final Date: 09 May 2024 18:04
[2024-05-09] MEDS: HYDROmorphone 1 MG/ML 1 ML SYRINGE IVP PRN (18:20)
[2024-05-09] MEDS: ATORVASTATIN 80 MG TAB PO SCH (21:01)
[2024-05-10] MEDS: ASPIRIN 81 MG PO SCH (15:00)
[2024-05-10] MEDS: CLOPIDOGREL 75 MG TAB PO SCH (15:00)
[2024-05-10] MEDS: NITROGLYCERIN OINT 1 INCH/GM PACKET TOPICAL STA (15:00)
--- NOTE | 2024-05-10 15:09 | P.PN ---
Subjective Progress Note Date: 05/10/24 48 year old M with PMH of HLD, h/o heroin abuse now 13 years clean on Methadone presents to the ED for chest pain. Patient reports chest pain described as pressure like, mid-sternal with no radiation, alleviating or aggravating factors that has been ongoing for the the past 5-6 days. When it first started he was able to take some Rolaids which helped take the pain away. This morning the pain returned with worsening intensity. He tried to take Rolaids and Pepcid without relief which prompted him to come to the ED at [facility]. Pain is associated with diaphoresis. He denies any shortness of breath, palpitations or lightheadedness. He denies any current illicit drug use. In The ED he underwent extensive evaluation. BP 152/99, HR 56, RR 22, 99% on RA, T 97.1F. Workup significant for elevated HS Troponin I of 500, Cr 1.21, AST 39, WBC 13, Hct 50.9. Lipase, BNP, Coag panel, CXR within normal limits. ECG showed mild ST elevations in inferolateral leads for which STEMI was activated He was transfer red to [facility]. He underwent cardiac cath with Dr. Hinojosa which showed mild luminal irregularities otherwise patent coronaries and EF 50-55%. He underwent CTA chest which showed no PE, no gross evidence of aortic dissection, pulmonary nodules. Patient is admitted for further workup and management. Echo EF 45-50% inferoapical + lateral wall hypokinesis. Repeat Troponin 24, 33.9, 29.9. Started on heparin infusion on 05/08. 05/10 Patient was seen and examined with Dr. Hinojosa at bedside. Still with chest pain. Case discussed extensively with Dr. Hinojosa, no significant occlusions seen on the initial cath however Echo done 05/09 now shows lateral and inferior wall hypokinesis, EF 35-40%. Due to continued chest pain, plan for repeat cardiac cath either today or tomorrow. Started on ASA, Plavix and Nitropaste. APTT 42.8. General: non toxic, mild distress, appears at stated age Derm: warm, dry Head: atraumatic, normocephalic, symmetric Eyes: EOMI, no lid lag, anicteric sclera Mouth: no lip lesion, mucus membranes moist Cardiovascular: good distal perfusion in all 4 extremities Lungs: breathing comfortably, no accessory muscle use Ext: no gross muscle atrophy, no edema, no contractures Neuro: no focal neuro deficits Psych: Alert, oriented, appropriate affect Based on my assessment of this patient, this patient meets a high complexity level of care. STEMI: Per Dr. Shen, groove branch of circumflex is diffusely diseased and probably has some subtotal occlusion and late filling seen on cardiac cath. Continue Heparin drip. Echo 05/08 with EF 45-50% inferoapical + lateral wall hypokinesis. Echo 05/10 now EF 35-40%. Start ASA 81 mg PO QD and Plavix 75 mg PO QD. Continue Lipitor 80 mg PO QHS. Continue Metoprolol as below. Telemetry monitoring. Dilaudid 1 mg IV Q2H PRN for severe pain. Toradol 15 mg IV Q6H PRN. Plans for cardiac cath today or tomorrow. Cardiology on board. NSVT: Maintain K > 4 and Mg > 2. Telemetry monitoring. Metoprolol 25 mg PO TID. Systolic CHF EF 35-40%: Euvolemic. BNP 147. Metoprolol as above. Losartan 12.5 mg PO QD. Dyslipidemia: Lipitor 80 mg PO QHS. Leukocytosis: Unknown etiology. No clear signs of infection. Does not meet sepsis criteria. Monitor fever profile. History of heroin abuse: Methadone 125 mg PO QD. Anxiety: Xanax 1 mg PO TID. Resolved: BINU CODE STATUS: FULL CODE. DVT Prophylaxis: Heparin drip GI Prophylaxis: Designated medical POA if patient is not able to make medical decisions for themselves: I have reviewed the following bi consultant notes: I have reviewed the results of the following tests: APTT. I have ordered the following tests: Daily Coag panel. I have discussed the care of this patient with the following independent historian: Family at bedside. RN. I have independently interpreted the following test below: I have discussed the management of this patient with the following physician: Dr. Hinojosa. Objective - Vital Signs Vital signs: Vital Signs Temp 98.7 F 05/09/24 20:00 Pulse 65 05/10/24 13:51 Resp 16 05/10/24 13:51 BP 98/62 05/10/24 11:18 Pulse Ox 96 05/10/24 11:18 FiO2 Intake & Output 05/09/24 05/10/24 05/10/24 18:59 06:59 18:59 Intake Total 225.413 745.577 684.679 Balance 225.413 745.577 684.679 Weight 100.1 kg Intake: IV 20 Invasive Line 1 20 Intake, IV Titration 85.413 205.577 134.679 Amount Heparin Sod,Pork in 0.45% 85.413 205.577 134.679 NaCl 25,000 unit In 0.45 % NaCl 1 250ml.bag @ 9. 881 UNITS/KG/HR 10 mls/hr IV .Q24H [facility] Rx#: [id number] Oral 120 540 550 Other: Voiding Method Toilet Toilet Toilet # Voids 2 0 # Bowel Movements 0 - Labs CBC & Chem 7: 05/09/24 05:55 05/08/24 06:10 Labs: Abnormal Lab Results - Last 24 Hours (Table) 05/09/24 05/10/24 Range/Units 17:57 07:00 APTT 46.7 H 42.8 H (22.0-30.0) sec
[2024-05-10] MEDS ORDERED: ALPRAZolam 0.25 MG TAB PO PRN (15:32)
[2024-05-10] MEDS: EMPTY BAG 1 BAG with SODIUM CHLORIDE 0.9% 1,000 ML IV ONE (15:34)
[2024-05-10] MEDS: SODIUM CHLORIDE 0.9% 1,000 ML in EMPTY BAG 1 BAG IV SCH (15:45)
[2024-05-10] MEDS: ASPIRIN 81 MG PO ONE (16:15)
[2024-05-10] MEDS: fentaNYL (PF) 50 MCG/ML 2 ML AMP IVP ONE (16:19)
[2024-05-10] MEDS: MIDAZOLAM 2 MG/2 ML VIAL IVP ONE (16:19)
[2024-05-10] MEDS: LIDOCAINE 1% INJ 10MG/ML (20 ML MDV) SQ ONE (16:20)
[2024-05-10] MEDS: VERAPAMIL SYRINGE (5 MG/10 ML) INTRAARTER ONE (16:22)
[2024-05-10] MEDS: IV FLUID CONTINUATION 900 ML IV ONE (16:38)
[2024-05-10] MEDS: IOPAMIDOL-370 100ML BTL INJ ONE (16:39)
[2024-05-10] MEDS ORDERED: RX INFO: IV CONTRAST WAS GIVEN 1 EACH MISC MISCELLANE PRN (16:49)
--- NOTE | 2024-05-10 16:58 | P.CARDCATH ---
Date of Procedure: 05/10/24 Description of Procedure: DIAGNOSTIC CORONARY ANGIOGRAPHY and LEFT HEART CATH REPORT PROCEDURES PERFORMED: Left heart catheterization Selective coronary angiography Moderate conscious sedation 14 mins Right radial access INDICATION: NSTEMI 48-year-old male was referred to [facility] because of concerns of ST changes and active substernal chest pain. He underwent a cardiac catheterization for STEMI which did not show any significant obstructive epicardial coronary artery disease. His LV gram showed an EF of 50%. During the hospital stay patient continued to have significant substernal chest pressure which was recurrent and 8/10 in intensity. It would partially get better with sublingual nitroglycerin but would recur shortly after. His troponins were also elevated at 30. Along with that he had an echocardiogram which showed an EF of 35 to 40% with lateral wall hypokinesia. CONSENT: I have explained the procedural steps of above-mentioned procedures in layman's terms to the patient. I discussed the risks (including but not limited to stroke, emergent vascular or cardiac surgery or ), benefits and alternative therapies for the above-mentioned procedure. I discussed the risks of sedation/analgesia and blood product administration (if indicated). The patient has indicated understanding and acceptance of these risks. Conscious Sedation: Patient's ECG, heart rate, blood pressure, pulse oximetry were monitored throughout the duration of procedure under my direct supervision. 2 mg Versed and 50 mcg Fentanyl were used for induction of moderate conscious sedation. Total duration of moderate concious sedation 14 minutes. PROCEDURE: After explaining the risks, benefits and alternatives of the above mentioned procedures in detail to the patient, informed consent was obtained. Patient was taken to the catheterization lab, prepped and draped in usual sterile fashion using universal precuations. Ultrasound was used to identify the radial artery. 1% lidocaine was infiltrated over the right radial artery. A 6-[place] sheath was placed and secured in the right radial artery using modified Seldinger technique. The sheath was flushed and 5 mg verapamil was administered intra-arterially. J tipped wire was advanced under fluoroscopic guidance. Patient was on IV heparin drip prior to the procedure which was turned off 10 minutes before the procedure. Over the wire JR4 diagnostic catheter was advanced. The wire in place the catheter was manipulated to cross the aortic valve and entered into LV under fluoroscopy guidance. The wire was removed and the catheter was flushed. LV pressures were obtained and pullback was performed under fluoroscopy. Catheter was manipulated to selectively engage the right coronary ostium. Right coronary angiography was performed in different angiographic projections. The JR5 diagnostic catheter was exchanged for a JL 3.5 diagnostic catheter over the J-wire. The wire was removed, catheter was flushed and manipulated under fluoroscopy to selectively engaged the left coronary ostium. Left coronary angioplasty was performed in different angiographic projections. Catheter was removed over the wire. Radial sheath was flushed. The right radial sheath was removed and a TR band was placed with excellent patent hemostasis was achieved. The patient tolerated the procedure well. Patient was transported back to the post catheterization holding area in stable condition. Angiographic images were reviewed in detail. HEMODYNAMICS: Aortic Pressure: 110/70 mmHg. LV pressure: 114/10 mmHg. LVEDP 25 mmHg. There was no significant gradient across the aortic valve. SELECTIVE CORONARY ARTERIOGRAPHY: LEFT MAIN: The left main is short and large caliber vessel. It trifurcates into the LAD, Ramus and circumflex. Left main appears angiographically normal. LEFT ANTERIOR DESCENDING CORONARY ARTERY: LAD is a large caliber vessel reaches up to the apex. Proximal LAD has mild luminal irregularities and is otherwise patent.. Mid LAD has mild luminal irregularities and is otherwise patent. It gives rise to a small diagonal 1 branch and a medium size diagonal 2 branch which appears angiographically patent. Distal LAD appears angiographically normal. RAMUS: Small caliber vessel gives a small atrial branch. It appears to have a small stump and is appeared to be 100% occluded. Small vessel 1.5 mm and is not amenable for intervention. There are left to left epicardial collaterals filling the distal ramus on lateral wall in retrograde fashion. LEFT CIRCUMFLEX CORONARY ARTERY: It is nondominant vessel. LCx is small caliber vessel and has diffuse mild luminal irregularities. It gives rise to a small O M1 branch and OM 2 branch which are angiographically patent. RIGHT CORONARY ARTERY: Dominant vessel. The right coronary artery is a large caliber vessel which gives PDA and PLV branch. Proximal mid and distal RCA has mild diffuse luminal irregularities. PDA is long and has 30 to 40% disease in mid segment. PL branches are angiographically patent. IMPRESSION: 100% occluded small ramus branch, left to left collaterals filling retrogradely. PLAN: Ramus is not amiable for intervention because of small caliber. Goal is to treat patient medically with 1 year of dual antiplatelet therapy Make sure patient is on high intensity statin, metoprolol tartrate 25 mg twice daily, losartan 12.5 mg daily, Farxiga 10 mg daily. Recommend cardiac rehab on outpatient basis. 75 cc fluids for 5 hours Resume IV heparin drip for 12 hours after 4 hours of heart cath. Performing Physician Giuliano Hinojosa MD, FACC, RPVI Thank you for allowing [facility] to participate in this patient's care. Feel free to reach out in case of any followup questions.
[2024-05-10] MEDS: SODIUM CHLORIDE 0.9% 1,000 ML IV SCH (18:35)
[2024-05-10] MEDS: METOPROLOL TARTRATE 25 MG TAB PO SCH (20:57)
[2024-05-11] MEDS ORDERED: HEPARIN SODIUM,PORCINE (1 ML) 2,500 UNIT in SODIUM CHLORIDE 0.9% 250 ML IRRIGATION PRN (07:00)
[2024-05-11] MEDS ORDERED: HEPARIN SODIUM,PORCINE 10,000 UNIT in SODIUM CHLORIDE 0.9% 1,000 ML IRRIGATION PRN (07:00)
[2024-05-11] MEDS: DAPAGLIFLOZIN PROPANEDIOL 10 MG TABLET PO SCH (08:17)
[2024-05-11 09:52] LABS: African American GFR (CKD) >90 (>60 ml/min/1.73 sqM); Anion Gap 5 mmol/L; Blood Urea Nitrogen 18 mg/dL (9-20); Calcium 8.7 mg/dL (8.4-10.2); Carbon Dioxide 25 mmol/L (22-30); Chloride 105 mmol/L (98-107); Glucose 111 mg/dL (74-99); Non-African American GFR(CKD) >90 (>60 ml/min/1.73 sqM); Potassium 4.4 mmol/L (3.5-5.1); Sodium 135 mmol/L (137-145)
--- NOTE | 2024-05-11 10:57 | P.PN ---
Subjective Progress Note Date: 05/11/24 48 year old M with PMH of HLD, h/o heroin abuse now 13 years clean on Methadone presents to the ED for chest pain. Patient reports chest pain described as pressure like, mid-sternal with no radiation, alleviating or aggravating factors that has been ongoing for the the past 5-6 days. When it first started he was able to take some Rolaids which helped take the pain away. This morning the pain returned with worsening intensity. He tried to take Rolaids and Pepcid without relief which prompted him to come to the ED at [facility]. Pain is associated with diaphoresis. He denies any shortness of breath, palpitations or lightheadedness. He denies any current illicit drug use. In The ED he underwent extensive evaluation. BP 152/99, HR 56, RR 22, 99% on RA, T 97.1F. Workup significant for elevated HS Troponin I of 500, Cr 1.21, AST 39, WBC 13, Hct 50.9. Lipase, BNP, Coag panel, CXR within normal limits. ECG showed mild ST elevations in inferolateral leads for which STEMI was activated He was transfer red to [facility]. He underwent cardiac cath with Dr. Hinojosa which showed mild luminal irregularities otherwise patent coronaries and EF 50-55%. He underwent CTA chest which showed no PE, no gross evidence of aortic dissection, pulmonary nodules. Patient is admitted for further workup and management. Echo EF 45-50% inferoapical + lateral wall hypokinesis. Repeat Troponin 24, 33.9, 29.9. Started on heparin infusion on 05/08. With continued chest pain, he underwent repeat cardiac cath on 05/10 which showed small caliber vessel occlusion in the ramus not amendable to stenting. 05/11 Patient was seen and examined. Still with chest pain. Discussed that he may need an increased dose of Methadone for better pain control he does have an appointment with his client specialist on . BMP shows Na 135, glu 111. Maintained on heparin drip at 12.88 units/kg/hr until 2PM. General: non toxic, mild distress, appears at stated age Derm: warm, dry Head: atraumatic, normocephalic, symmetric Eyes: EOMI, no lid lag, anicteric sclera Mouth: no lip lesion, mucus membranes moist Cardiovascular: S1 S2 reg. No murmurs, rubs, gallops Lungs: Clear to auscultation bilaterally, no accessory muscle use Ext: no gross muscle atrophy, no edema, no contractures Neuro: no focal neuro deficits Psych: Alert, oriented, appropriate affect Based on my assessment of this patient, this patient meets a high complexity level of care. STEMI: Per Dr. Shen, groove branch of circumflex is diffusely diseased and probably has some subtotal occlusion and late filling seen on cardiac cath. Continue Heparin drip until 2PM. Echo 05/08 with EF 45-50% inferoapical + lateral wall hypokinesis. Echo 05/10 now EF 35-40%. ASA 81 mg PO QD and Plavix 75 mg PO QD. Continue Lipitor 80 mg PO QHS. Continue Metoprolol as below. Te lemetry monitoring. Dilaudid 1 mg IV Q2H PRN for severe pain. Toradol 15 mg IV Q6H PRN. Cardiology on board. NSVT: Maintain K > 4 and Mg > 2. Telemetry monitoring. Metoprolol 25 mg PO BID. Systolic CHF EF 35-40%: Euvolemic. BNP 147. Metoprolol as above. Losartan 12.5 mg PO QD. Farxiga 10 mg PO QD. Dyslipidemia: Lipitor as above. Leukocytosis: Unknown etiology. No clear signs of infection. Does not meet sepsis criteria. Monitor fever profile. History of heroin abuse: Methadone 125 mg PO QD. Anxiety: Xanax 1 mg PO TID. Resolved: BINU CODE STATUS: FULL CODE. DVT Prophylaxis: Heparin drip GI Prophylaxis: Designated medical POA if patient is not able to make medical decisions for themselves: I have reviewed the following biometrics consultant notes: Cardiology note. Cath note. I have reviewed the results of the following tests: APTT. BMP. I have ordered the following tests: I have discussed the care of this patient with the following independent historian: Family at bedside. RN. I have independently interpreted the following test below: I have discussed the management of this patient with the following physician: Objective - Vital Signs Vital signs: Vital Signs Temp 98.2 F 05/10/24 20:00 Pulse 75 05/11/24 09:15 Resp 16 05/11/24 09:15 BP 106/72 05/11/24 08:14 Pulse Ox 98 05/11/24 08:14 FiO2 Intake & Output 05/10/24 05/11/24 05/11/24 18:59 06:59 18:59 Intake Total 900.000 540 60.167 Balance 900.000 540 60.167 Weight 101.6 kg Intake: IV 100 Intake, IV Titration 250.000 60.167 Amount Heparin Sod,Pork in 0.45% 250.000 60.167 NaCl 25,000 unit In 0.45 % NaCl 1 250ml.bag @ 9. 881 UNITS/KG/HR 10 mls/hr IV .Q24H [facility] Rx#: [id number] Oral 550 540 Other: Voiding Method Toilet Toilet Toilet # Voids 0 2 # Bowel Movements 0 - Labs CBC & Chem 7: 05/09/24 05:55 05/11/24 08:58 Labs: Abnormal Lab Results - Last 24 Hours (Table) 05/11/24 05/11/24 Range/Units 07:30 08:58 APTT 31.7 H (22.0-30.0) sec Sodium 135 L (137-145) mmol/L Glucose 111 H (74-99) mg/dL
[2024-05-11] MEDS: ISOSORBIDE MONONITRATE ER 15 MG TAB PO SCH (12:24)
--- NOTE | 2024-05-11 13:57 | P.PN ---
Subjective Progress Note Date: 05/11/24 HISTORY OF PRESENTING ILLNESS 48-year-old male presented to [facility] with substernal chest pain. On admission to the ER his ECG showed mild ST elevations in inferolateral leads for which STEMI was activated. His blood work showed an elevated high- sensitivity troponin of 500. Because of ongoing substernal chest pain nonrevealing with nitroglycerin and subtle ST changes, STEMI was activated by the ER physician at [facility] and was transferred to [facility]. Patient was evaluated in the [facility]. Patient reported having 8/10 substernal chest pressure. He is hemodynamically stable. Patient denies any smoking, recreational drug use marijuana use or alcohol use He denies any family Struve premature coronary artery disease He denies any history of stroke CT or any diabetes in the past. Progress note 05/11/2024 Patient is still continuing to have substernal chest pressure around 6-7 out of 10 in intensity. He describes a tight substernal chest pressure. It gets somewhat slightly better with sublingual nitroglycerin. I will add Imdur due to this. No postcardiac cath complications. Right radial artery appears to be intact with patent hemostasis PHYSICAL EXAMINATION Vital signs reviewed. Head: Normocephalic. Eyes: Sclerae nonicteric. Neck: Brisk carotid upstroke, no jugular venous distention. Lungs: Clear to auscultation. Heart: Regular rate and rhythm, S1-S2, no S3, no murmur or rub. Abdomen: Soft nontender, positive bowel sounds. Extremities: No edema, intact distal pulses. Neuro: Alert, oritented, no focal deficits. Detailed neuro exam was not performed. ASSESSMENT Lateral STEMI, due to 100% occluded small ramus branch, not amiable for intervention due to its small caliber. Mild diffuse nonobstructive coronary artery disease otherwise Persistent substernal chest pressure Ischemic cardiomyopathy EF 35 to 40% with lateral wall hypokinesia Cardiac testing 05/07/2024, cardiac catheterization, 100% occluded small ramus branch, mild diffuse disease otherwise. LV gram showed EF around 40% 05/10/2024, repeat heart catheterization because of persistent substernal chest pressure along with uptrending troponin. Repeat heart cath did not show any new findings other than the one described above. Echocardiogram showed an EF of 35 to 40% with no LV thrombus, lateral anterolateral wall hypokinesia PLAN Discontinue IV heparin drip as he is completed 48 hours. Continue aspirin, Plavix 75 mg daily uninterrupted for next 1 year. Continue Lipitor 80 mg daily. Continue Farxiga 10 mg daily, Imdur 15 mg daily, losartan 12.5 g daily, metoprolol 25 g twice daily. If blood pressure tolerates, consider uptitrating beta-radha and Imdur. Monitor overnight, recommend discharge in next 24 hours. Objective - Vital Signs Vital signs: Vital Signs Temp 98.2 F 05/10/24 20:00 Pulse 66 05/11/24 11:43 Resp 18 05/11/24 13:25 BP 100/67 05/11/24 11:43 Pulse Ox 95 05/11/24 11:43 FiO2 Intake & Output 05/10/24 05/11/24 05/11/24 18:59 06:59 18:59 Intake Total 900.000 540 60.167 Balance 900.000 540 60.167 Weight 101.6 kg Intake: IV 100 Intake, IV Titration 250.000 60.167 Amount Heparin Sod,Pork in 0.45% 250.000 60.167 NaCl 25,000 unit In 0.45 % NaCl 1 250ml.bag @ 9. 881 UNITS/KG/HR 10 mls/hr IV .Q24H [facility] Rx#: [id number] Oral 550 540 Other: Voiding Method Toilet Toilet Toilet # Voids 0 2 # Bowel Movements 0 - Labs CBC & Chem 7: 05/09/24 05:55 05/11/24 08:58 Labs: Abnormal Lab Results - Last 24 Hours (Table) 05/11/24 05/11/24 Range/Units 07:30 08:58 APTT 31.7 H (22.0-30.0) sec Sodium 135 L (137-145) mmol/L Glucose 111 H (74-99) mg/dL
[2024-05-12 10:40] VITALS: RESP 16; TEMP 98.1
--- NOTE | 2024-05-12 12:50 | P.DS ---
Providers Date of admission: 05/07/24 13:42 Expected date of discharge: 05/12/24 Attending physician: Ivan Torres MD Consults: 05/07/24 15:02 Consult Physician Routine Consulting Provider: Jalen Loredo Consult Reason/Comments: medical Do you want consulting provider notified?: Yes Primary care physician: Stated None Hospital Course: 48 year old M with PMH of HLD, h/o heroin abuse now 13 years clean on Methadone presents to the ED for chest pain. Patient reports chest pain described as pressure like, mid-sternal with no radiation, alleviating or aggravating factors that has been ongoing for the the past 5-6 days. When it first started he was able to take some Rolaids which helped take the pain away. This morning the pain returned with worsening intensity. He tried to take Rolaids and Pepcid without relief which prompted him to come to the ED at [facility]. Pain is associated with diaphoresis. He denies any shortness of breath, palpitations or lighthead edness. He denies any current illicit drug use. In The ED he underwent extensive evaluation. BP 152/99, HR 56, RR 22, 99% on RA, T 97.1F. Workup significant for elevated HS Troponin I of 500, Cr 1.21, AST 39, WBC 13, Hct 50.9. Lipase, BNP, Coag panel, CXR within normal limits. ECG showed mild ST elevations in inferolateral leads for which STEMI was activated He was transferred to [facility]. He underwent cardiac cath with Dr. Hinojosa which showed mild luminal irregularities otherwise patent coronaries and EF 50-55%. He underwent CTA chest which showed no PE, no gross evidence of aortic dissection, pulmonary nodules. Patient is admitted for further workup and management. Echo EF 45-50% inferoapical + lateral wall hypokinesis. Repeat Troponin 24, 33.9, 29.9. Started on heparin infusion on 05/08. With continued chest pain, he underwent repeat cardiac cath on 05/10 which showed small caliber vessel occlusion in the ramus not amendable to stenting. 05/12 Patient was seen and examined. Still with chest pain. Discharge Plans: Hopeful plans for discharge home if Cardiology cleared. Prescriptions sent for ASA, Plavix, Metoprolol, Lipitor, Nitro SL, Imdur, Losartan, Farxiga. 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 Follow up with PCP within 1-2 days and Cardiology within 1 week of marisol perez. General: non toxic, mild distress, appears at stated age Derm: warm, dry Head: atraumatic, normocephalic, symmetric Eyes: EOMI, no lid lag, anicteric sclera Mouth: no lip lesion, mucus membranes moist Cardiovascular: S1 S2 reg. No murmurs, rubs, gallops Lungs: Clear to auscultation bilaterally, no accessory muscle use Ext: no gross muscle atrophy, no edema, no contractures Psych: Alert, oriented, appropriate affect Discharge Diagnosis: STEMI: Per Dr. Shen, groove branch of circumflex is diffusely diseased and probably has some subtotal occlusion and late filling seen on cardiac cath. Status post 48H heparin infusion. Echo 05/08 with EF 45-50% inferoapical + lateral wall hypokinesis. Echo 05/10 now EF 35-40%. ASA 81 mg PO QD and Plavix 75 mg PO QD. Continue Lipitor 80 mg PO QHS. Continue Metoprolol as below. NSVT: Metoprolol 25 mg PO BID. Systolic CHF EF 35-40%: Euvolemic. BNP 147. Metoprolol as above. Losartan 12.5 mg PO QD. Farxiga 10 mg PO QD. Dyslipidemia: Lipitor as above. Leukocytosis: Unknown etiology. No clear signs of infection. Does not meet sepsis criteria. Monitor fever profile. History of heroin abuse: Methadone 125 mg PO QD. Anxiety: Xanax 1 mg PO TID. Resolved: BINU This complex discharge took 35 minutes to complete. Patient Condition at Discharge: Stable Plan - Discharge Summary New Discharge Prescriptions: New Losartan [Cozaar] 12.5 mg PO DAILY #30 tab Dapagliflozin Propanediol [Farxiga] 10 mg PO DAILY #30 tab Isosorbide Mononitrate ER [Imdur] 15 mg PO DAILY #30 tab Atorvastatin [Lipitor] 80 mg PO HS #30 tab Metoprolol Tartrate [Lopressor] 25 mg PO BID #60 tab Nitroglycerin Sl Tabs [Nitrostat] 0.4 mg SUBLINGUAL Q5M PRN #25 tab PRN Reason: Chest Pain Aspirin 81 mg PO DAILY #30 tab Clopidogrel [Plavix] 75 mg PO DAILY #30 tab Continue ALPRAZolam [Xanax] 1 mg PO TID Methadone HCl [Methadone Intensol] 125 mg PO DAILY Testosterone Cypionate [Depo-Testosterone] 200 mg IM Q14D tiZANidine [Zanaflex] 4 mg PO BID PRN PRN Reason: Muscle Spasm Rolaids(Unknown Dose) 4 tab PO DAILY PRN PRN Reason: Heartburn Discontinued Pravastatin Sodium [Pravachol] 40 mg PO HS Discharge Medication List ALPRAZolam [Xanax] 1 mg PO TID 07/03/16 [History] Methadone HCl [Methadone Intensol] 125 mg PO DAILY 08/09/17 [History] Rolaids(Unknown Dose) 4 tab PO DAILY PRN 05/07/24 [History] Testosterone Cypionate [Depo-Testosterone] 200 mg IM Q14D 05/07/24 [History] tiZANidine [Zanaflex] 4 mg PO BID PRN 05/07/24 [History] Aspirin 81 mg PO DAILY #30 tab 05/12/24 [Rx] Atorvastatin [Lipitor] 80 mg PO HS #30 tab 05/12/24 [Rx] Clopidogrel [Plavix] 75 mg PO DAILY #30 tab 05/12/24 [Rx] Dapagliflozin Propanediol [Farxiga] 10 mg PO DAILY #30 tab 05/12/24 [Rx] Isosorbide Mononitrate ER [Imdur] 15 mg PO DAILY #30 tab 05/12/24 [Rx] Losartan [Cozaar] 12.5 mg PO DAILY #30 tab 05/12/24 [Rx] Metoprolol Tartrate [Lopressor] 25 mg PO BID #60 tab 05/12/24 [Rx] Nitroglycerin Sl Tabs [Nitrostat] 0.4 mg SUBLINGUAL Q5M PRN #25 tab 05/12/24 [Rx] Follow up Appointment(s)/Referral(s): Giuliano Hinojosa MD [Medical Doctor] - 1 Week Ever Varghese DO [Doctor of Osteopathic Medicine] - 1-2 Days Patient Instructions/Handouts: *Surgery [facility] - After Heart Catheterization - [employer] Instructions Discharge Disposition: HOME SELF-CARE
--- NOTE | 2024-05-12 13:09 | P.PN ---
Subjective HISTORY OF PRESENT ILLNESS: Patient examined this morning at the bedside. Patient currently denies any chest pain or pressure. He denies shortness of breath. He has been up ambulating without difficulty. Vital signs are stable. Patient is hoping to be discharged home today. 05/07/2024, cardiac catheterization, 100% occluded small ramus branch, mild diffuse disease otherwise. LV gram showed EF around 40% 05/10/2024, repeat heart catheterization because of persistent substernal chest pressure along with uptrending troponin. Repeat heart cath did not show any new findings other than the one described above. Echocardiogram showed an EF of 35 to 40% with no LV thrombus, lateral anterolateral wall hypokinesia PHYSICAL EXAM: VITAL SIGNS: Reviewed. GENERAL: Well-developed in no acute distress. NECK: Supple. No JVD or thyromegaly LUNGS: Respirations even and unlabored. Lungs essentially clear to auscultation bilaterally. HEART: Regular rate and rhythm. S1 and S2 heard. EXTREMITIES: Normal range of motion. No clubbing or cyanosis. Peripheral pulses intact. No lower extremity edema ASSESSMENT: Lateral STEMI, due to 100% occluded small ramus branch, not amiable for intervention due to its small caliber. Mild diffuse nonobstructive coronary artery disease otherwise Ischemic cardiomyopathy EF 35 to 40% with lateral wall hypokinesia PLAN: Continue dual antiplatelet therapy with aspirin and Plavix for 1 year Continue high intensity statin. LDL goal less than 70. Continue additional cardiac medications Patient is stable for discharge home today from a cardiac standpoint He is to follow-up postdischarge in the office with Dr. Hinojosa Nurse practitioner note has been reviewed by physician. Signing provider agrees with the documented findings, assessment, and plan of care documented by [employer] OPERATOR as a scribe. Objective - Vital Signs Vital signs: Vital Signs Temp 98.1 F 05/12/24 08:50 Pulse 78 05/12/24 08:50 Resp 16 05/12/24 08:50 BP 118/70 05/12/24 08:50 Pulse Ox 98 05/12/24 08:50 FiO2 Intake & Output 05/11/24 05/12/24 05/12/24 18:59 06:59 18:59 Intake Total 1164.167 380 120 Balance 1164.167 380 120 Weight 101.5 kg Intake: IV 20 Invasive Line 1 20 Intake, IV Titration 60.167 Amount Heparin Sod,Pork in 0.45% 60.167 NaCl 25,000 unit In 0.45 % NaCl 1 250ml.bag @ 9. 881 UNITS/KG/HR 10 mls/hr IV .Q24H [facility] Rx#: [id number] Oral 1104 360 120 Other: Voiding Method Toilet Toilet # Voids 1 # Bowel Movements 1 - Labs CBC & Chem 7: 05/09/24 05:55 05/11/24 08:58
[2024-05-12 15:08] VITALS: BP 121/72; PULSE 67
== END 2024-05-12 16:15 | disposition home or self-care (01) | DRG 281 ==
LOC: 2SICU 13:42 → 3SCARD 14:13
PROVIDERS: ADMIT Family Medicine; ATTEND Family Medicine
PROC: 4A023N7 Measurement of Cardiac Sampling and Pressure, Left Heart, Percutaneous Approach (ICD-10-PCS; principal; 2024-05-10 16:15)
PROC: B2111ZZ Fluoroscopy of Multiple Coronary Arteries using Low Osmolar Contrast (ICD-10-PCS; principal; 2024-05-10 16:15)
PROC: B2151ZZ Fluoroscopy of Left Heart using Low Osmolar Contrast (ICD-10-PCS; principal; 2024-05-10 16:15)
DX: I21.19 ST elevation (STEMI) myocardial infarction involving other coronary artery of inferior wall (principal); I47.20 Ventricular tachycardia, unspecified; I50.20 Unspecified systolic (congestive) heart failure; N17.9 Acute kidney failure, unspecified; F11.11 Opioid abuse, in remission; I25.10 Atherosclerotic heart disease of native coronary artery without angina pectoris; I25.5 Ischemic cardiomyopathy; D72.829 Elevated white blood cell count, unspecified; E78.5 Hyperlipidemia, unspecified; F32.A Depression, unspecified; F41.9 Anxiety disorder, unspecified; G89.29 Other chronic pain; Z79.82 Long term (current) use of aspirin; Z79.891 Long term (current) use of opiate analgesic; Z79.899 Other long term (current) drug therapy; Z28.21 Immunization not carried out because of patient refusal
CPT/HCPCS: 71275; 80048; 80061; 80306; 83036; 83735; 83880; 84443; 84484; 85025; 85027; 85610; 85652; 85730; 86140; 87636; 93306; 93308; 93458